=== PATIENT | male | born 1950 | race Caucasian/White ===

== ENCOUNTER 2019-11-12 14:22 | Outpatient (CLI) | payer OTHER | END 2019-11-12 14:23 | disposition home or self-care (01) | LOC: COV 14:22 | PROVIDERS: ATTEND Family Medicine | DX: Z11.59 Encounter for screening for other viral diseases (principal) ==

== ENCOUNTER 2020-09-25 11:25 | Day surgery (SDC) | payer OTHER ==
[2020-09-25] MEDS ORDERED: LACTATED RINGERS 1,000 ML IV ONE (12:00)
[2020-09-25] MEDS ORDERED: MIDAZOLAM 2 MG/2 ML VIAL ONE ×3 (13:40→14:16)
[2020-09-25] MEDS ORDERED: fentaNYL 250 MCG/5 ML VIAL ONE (13:41)
--- NOTE | 2020-09-25 13:47 | HISTORY & PHYSICAL EXAMINATION ---
Chief Complaint - Chief Complaint Chief Complaint: History of colon polyps History of Present Illness - History Obtained From Records Reviewed: yes History obtained from: pt Exam Limitations: none - History of Present Illness HPI Comment/Other: history of colon polyps. normal colonoscopy 5 years ago. History - Past Medical History Cardiovascular: reports: None Respiratory: reports: None Endocrine/Autoimmune: reports: None GI: reports: Pancreatitis : reports: None HEENT: reports: Dental implants Psych: reports: None Musculoskeletal: reports: None Derm: reports: None MRSA Hx?: No - Past Surgical History General: reports: Colonoscopy Ortho: reports: Other HEENT: reports: Tonsil/Adenoidectomy Meds/Allgy - Home Medications Home Medications: Ambulatory Orders Medication Instructions Recorded Confirmed No Known Home Medications 09/24/20 09/25/20 - Allergies Allergies/Adverse Reactions: Allergies Allergy/AdvReac Type Severity Reaction Status Date / Time No Known Drug Allergies Allergy Verified 09/25/20 11:46 Review of Systems - Other Findings Other Findings: 10 pt ros as above otherwise unremarkable Exam - Vital Signs Reviewed Vital Signs: Yes Vital Signs: Vital Signs x48h Temp Pulse Resp BP Pulse Ox 09/25/20 11:35 36.6 C 55 L 12 136/83 H 98 - Physical Exam General Appearance: positive: Alert Eyes Bilateral: positive: PERRL, EOMI ENT: positive: No signs of dehydration Neck: positive: No JVD Respiratory: positive: No respiratory distress, Breath sounds nml Cardiovascular: positive: Regular rate & rhythm Abdomen: positive: Non-tender, No distention Neurologic/Psychiatric: positive: Oriented x3 Conclusion/Plan - Problem List (1) History of adenomatous polyp of colon Conclusion/Plan: plan colonoscopy. parq held and consent obtained
[2020-09-25] MEDS ORDERED: LACTATED RINGERS 500 ML IV ONE (14:37)
[2020-09-25 14:55] VITALS: BP 125/68
== END 2020-09-25 11:26 | disposition home or self-care (01) ==
LOC: SDS 11:25
PROVIDERS: ATTEND Surgery
DX: Z12.11 Encounter for screening for malignant neoplasm of colon (principal); K57.30 Diverticulosis of large intestine without perforation or abscess without bleeding; Z86.010 Personal history of colon polyps
CPT/HCPCS: 45378; J3010; J7120

== ENCOUNTER 2020-10-15 10:02 | Outpatient (CLI) | payer OTHER ==
[2020-10-15 10:17] LABS: BASOPHILS % (AUTO) 0.8 %; EOSINOPHILS # (AUTO) 0.1 10^3/uL (0.0-0.7); EOSINOPHILS % (AUTO) 1.2 %; HCT - HEMATOCRIT 45.5 % (42.0-52.0); HGB - HEMOGLOBIN 15.6 g/dL (14.0-18.0); LYMPHOCYTES # (AUTO) 1.9 10^3/uL (1.5-3.5); LYMPHOCYTES % (AUTO) 38.1 %; MEAN CORPUSCULAR HEMOGLOBIN 30.6 pg (27.0-31.0); MEAN CORPUSCULAR HGB CONC 34.3 g/dL (32.0-36.0); MEAN CORPUSCULAR VOLUME 89.2 fL (80.0-94.0); MEAN PLATELET VOLUME 9.4 fL (7.4-11.4); MONOCYTES # (AUTO) 0.5 10^3/uL (0.0-1.0); MONOCYTES % (AUTO) 9.9 %; NEUTROPHILS # (AUTO) 2.4 10^3/uL (1.5-6.6); NEUTROPHILS % (AUTO) 49.6 %; PLT - PLATELET COUNT 172 10^3/uL (130-450); RED CELL DISTRIBUTION WIDTH 12.4 % (12.0-15.0); WHITE BLOOD COUNT 4.9 x10^3/uL (4.8-10.8)
[2020-10-15 10:39] LABS: ALBUMIN 4.7 g/dL (3.2-5.5); ALBUMIN/GLOBULIN RATIO 1.6 (1.0-2.2); ALKALINE PHOSPHATASE 30 IU/L (42-121); ALT ALANINE AMINOTRANSFERASE 24 IU/L (10-60); AST ASPARTATE AMINOTRANSFERASE 22 IU/L (10-42); BILIRUBIN,TOTAL 1.2 mg/dL (0.2-1.0); BUN - BLOOD UREA NITROGEN 14 mg/dL (6-20); CALCIUM 9.5 mg/dL (8.5-10.3); CARBON DIOXIDE - CO2 29 mmol/L (21-32); CHLORIDE 100 mmol/L (101-111); CHOL/HDL RATIO 6.7 (<5.0); CHOLESTEROL 235 mg/dL; CREATININE 0.7 mg/dL (0.6-1.2); GFR - MDRD 112 (>89); GLUCOSE 135 mg/dL (70-100); HDL CHOLESTEROL 35 mg/dL; LDL CHOLESTEROL,CALCULATED 170 mg/dL; LDL/HDL RATIO 4.9 (<3.6); SODIUM 138 mmol/L (135-145); TOTAL PROTEIN 7.7 g/dL (6.7-8.2); TRIGLYCERIDES 149 mg/dL; VLDL CHOLESTEROL 30 mg/dL
[2020-10-15 12:40] LABS: ESTIMATED AVERAGE GLUCOSE 134 mg/dL (70-100); HEMOGLOBIN A1c% 6.3 % (4.27-6.07)
== END 2020-10-15 10:03 | disposition home or self-care (01) ==
LOC: LAB 10:02
PROVIDERS: ATTEND Internal Medicine
DX: E78.5 Hyperlipidemia, unspecified (principal); Z79.899 Other long term (current) drug therapy; R73.9 Hyperglycemia, unspecified; Z12.5 Encounter for screening for malignant neoplasm of prostate
CPT/HCPCS: 36415; 80053; 80061; 83036; 83721; 84153; 85025

== ENCOUNTER 2023-05-20 17:36 | Inpatient (IN) | payer OTHER, MEDICARE ==
[2023-05-20 18:08] LABS: BASOPHILS % (AUTO) 0.4 %; EOSINOPHILS % (AUTO) 0.4 %; HCT - HEMATOCRIT 48.7 % (42.0-52.0); LYMPHOCYTES # (AUTO) 1.4 10^3/uL (1.5-3.5); LYMPHOCYTES % (AUTO) 14.2 %; MEAN CORPUSCULAR HEMOGLOBIN 29.3 pg (27.0-31.0); MEAN CORPUSCULAR HGB CONC 32.9 g/dL (32.0-36.0); MEAN CORPUSCULAR VOLUME 89.2 fL (80.0-94.0); MEAN PLATELET VOLUME 9.8 fL (7.4-11.4); MONOCYTES # (AUTO) 0.8 10^3/uL (0.0-1.0); MONOCYTES % (AUTO) 8.3 %; NEUTROPHILS # (AUTO) 7.3 10^3/uL (1.5-6.6); NEUTROPHILS % (AUTO) 76.4 %; PLT - PLATELET COUNT 220 10^3/uL (130-450); RED BLOOD COUNT 5.46 10^6/uL (4.70-6.10); RED CELL DISTRIBUTION WIDTH 11.9 % (12.0-15.0); WHITE BLOOD COUNT 9.5 x10^3/uL (4.8-10.8)
[2023-05-20 18:46] LABS: ALBUMIN 4.6 g/dL (3.2-5.5); ALBUMIN/GLOBULIN RATIO 1.4 (1.0-2.2); ALKALINE PHOSPHATASE 60 IU/L (42-121); ALT ALANINE AMINOTRANSFERASE 215 IU/L (10-60); AST ASPARTATE AMINOTRANSFERASE 213 IU/L (10-42); BILIRUBIN,TOTAL 3.4 mg/dL (0.2-1.0); BUN - BLOOD UREA NITROGEN 12 mg/dL (6-20); CARBON DIOXIDE - CO2 31 mmol/L (21-32); CHLORIDE 94 mmol/L (101-111); CREATININE 0.8 mg/dL (0.6-1.3); GFR - MDRD 96 (>89); GLUCOSE 477 mg/dL (74-104); POTASSIUM 3.9 mmol/L (3.5-4.5); SODIUM 136 mmol/L (135-145); TOTAL PROTEIN 7.9 g/dL (6.4-8.9)
[2023-05-20 19:05] LABS: LIPASE > 6000 U/L (11-82)
--- NOTE | 2023-05-20 19:10 | ED Physician Documentation ---
PD HPI ABD PAIN - Stated complaint Stated Complaint: ABD PX,VOMITING - Chief complaint Chief Complaint: Abd Pain - History obtained from History obtained from: Patient, Family - History of Present Illness Timing - onset: Yesterday Pain level max: 8 Pain level now: 8 Associated symptoms: No: Fever, Hematemesis, Diarrhea, Constipation, Melena, Hematochezia, Dysuria, Hematuria, Chest pain - Additional information Additional information: 72-year-old male presents to the emergency department with epigastric abdominal pain, started yesterday and is continued to worsen today. Has had nausea and vomiting today. No fevers. No chills. He states he has had pancreatitis once in the past, about 10 years ago, no cause found. He does not smoke or drink. He does not take any medications at home. Review of Systems Constitutional: denies: Fever, Chills Respiratory: denies: Dyspnea, Cough GI: reports: Nausea, Vomiting. denies: Diarrhea, Hematemesis, Bloody / black stool : denies: Dysuria, Frequency, Hesitancy Skin: denies: Rash Musculoskeletal: denies: Neck pain, Back pain Neurologic: denies: Headache PD PAST MEDICAL HISTORY - Past Medical History Past Medical History: Yes Cardiovascular: None Respiratory: None Endocrine/Autoimmune: None GI: Pancreatitis : None HEENT: Dental implants Psych: None Musculoskeletal: None Derm: None - Past Surgical History Past Surgical History: Yes General: Colonoscopy Ortho: Other HEENT: Tonsil/Adenoidectomy - Present Medications Home Medications: Ambulatory Orders Medication Instructions Recorded Confirmed No Known Home Medications 09/24/20 05/20/23 - Allergies Allergies/Adverse Reactions: Allergies Allergy/AdvReac Type Severity Reaction Status Date / Time No Known Drug Allergies Allergy Verified 05/20/23 17:54 - Social History Does the pt smoke?: No Smoking Status: Never smoker PD ED PE NORMAL - Vitals Vital signs reviewed: Yes - General General: Alert and oriented X 3, No acute distress - HEENT HEENT: PERRL, Moist mucous membranes - Neck Neck: Supple, no meningeal sign - Cardiac Cardiac: RRR, Strong equal pulses - Respiratory Respiratory: No respiratory distress, Clear bilaterally - Abdomen Abdomen: Soft, Non distended, Other (Tender to palpation epigastric without peritoneal signs. Otherwise benign abdominal exam) - Derm Derm: Warm and dry - Extremities Extremities: No edema - Neuro Neuro: Alert and oriented X 3 - Psych Psych: Normal mood, Normal affect Results - Vitals Vitals: Vital Signs - 24 hr 05/20/23 05/20/23 17:51 19:13 Temperature 36.5 C Heart Rate 60 81 Respiratory 16 20 Rate Blood Pressure 128/67 155/99 H O2 Saturation 99 96 Oxygen O2 Source Room air - Labs Labs: Laboratory Tests 05/20/23 05/20/23 05/20/23 18:04 18:04 19:16 WBC 9.5 RBC 5.46 Hgb 16.0 Hct 48.7 MCV 89.2 MCH 29.3 MCHC 32.9 RDW 11.9 L Plt Count 220 MPV 9.8 Neut # (Auto) 7.3 H Lymph # (Auto) 1.4 L [place] # (Auto) 0.8 Eos # (Auto) 0.0 Baso # (Auto) 0.0 Absolute Nucleated RBC 0.00 Nucleated RBC % 0.0 Sodium 136 Potassium 3.9 Chloride 94 L Carbon Dioxide 31 Anion Gap 11.0 BUN 12 Creatinine 0.8 Estimated GFR (MDRD) 96 Glucose 477 H Calcium 10.0 Total Bilirubin 3.4 H AST 213 H ALT 215 H Alkaline Phosphatase 60 Total Protein 7.9 Albumin 4.6 Globulin 3.3 Albumin/Globulin Ratio 1.4 Triglycerides 234 Lipase > 6000 H - Rads (name of study) Ct abd/pelvis Relevant Findings:: Final report received, See rad report abd US Relevant Findings:: Final report received, See rad report PD Medical Decision Making - ED course Complexity details: reviewed results, re-evaluated patient, considered differential, d/w patient, d/w family, d/w etl consultant ED course: 72-year-old male with pancreatitis, likely gallstone pancreatitis in origin. Does not drink. Not on any medications. Does have a history of diabetes and insulin resistance, does have a significantly elevated blood glucose here, 477. There is a question of potential early cholecystitis on the ultrasound, but no pericholecystic fluid and the patient is not tender over the gallbladder at this time. White count is normal as well, doubt acute cholecystitis. His common bile duct is normal as well. No evidence of choledocholithiasis. CT confirms pancreatitis, there is a question of a very small abscess, the patient does not have any tenderness over on the side of the abdomen. Afebrile. Normal white blood cell count. Unclear what the radiologist is seeing exactly on the CT scan, can be over read tomorrow with general surgery consulting with radiology. I did speak with Dr. Doyle, general surgery on-call, not concerned about choledocholithiasis and does not feel the patient needs an ERCP. Does not need emergent cholecystectomy. He states that he is happy to consult on the patient tomorrow. I did cover the patient with Zosyn for the potential very small abscess though I do not feel that this likely represents a true abscess based on the patient's clinical picture. Discussed the case with the nighttime hospitalist who accepts This document was made in part using voice recognition software. While efforts are made to proofread this document, sound alike and grammatical errors may occur. Departure - Departure Disposition: 66 [facility] DC/Xfer Clinical Impression: Hyperglycemia, Elevated LFTs Pancreatitis Qualifiers: Chronicity: acute Pancreatitis type: unspecified pancreatitis type Acute pancreatitis complication: unspecified Qualified Code(s): K85.90 - Acute pancreatitis without necrosis or infection, unspecified Condition: Stable Forms: PCP List
[2023-05-20] MEDS: HYDROmorphone 1 MG/ML CARPUJECT IVP STA (19:16)
[2023-05-20] MEDS: ONDANSETRON 4 MG/2 ML VIAL IVP STA (19:16)
[2023-05-20] MEDS ORDERED: iohexoL-300 100 ML VIAL ONE (19:27)
--- NOTE | 2023-05-20 20:46 | Ultrasound Report ---
PROCEDURE: Abdomen Limited INDICATIONS: elevated LFT, pancreatitis TECHNIQUE: Ultrasound of the abdominal right upper quadrant was obtained with image documentation. COMPARISONS: None. FINDINGS: Liver: Normal is size and echotexture. No evidence of focal mass lesion. No intra hepatic biliary ductal dilatation. Gallbladder: Cholelithiasis with gallbladder wall thickening. No pericholecystic fluid Common Bile Duct: 6 mm. Pancreas: Unremarkable as visualized. Right Kidney: Appropriate in size and echotexture. No evidence of hydronephrosis. No shadowing calc alfred. No solid or cystic mass lesion. IMPRESSION: Cholelithiasis and minimal gallbladder wall thickening without pericholecystic fluid or Clark's sign . Consider follow-up HIDA scan if acute cholecystitis is suspected. Reviewed by: Nestor Aranda MD on 05/20/2023 7:44 PM AKST Approved by: Nestor Aranda MD on 05/20/2023 7:44 PM AKST Station ID: [id number]
[2023-05-20] MEDS: iohexoL-300 100 ML VIAL IVP ONE (21:05)
--- NOTE | 2023-05-20 21:33 | CT Report ---
PROCEDURE: CT abdomen pelvis with contrast INDICATIONS: abd pain, pancreatitis TECHNIQUE: Helical axial CT of the abdomen and pelvis was obtained after intravenous contrast adminis tration and reformatted in multiple planes. Radiation dose reduction was achieved using automated exp osure control or adjustment of mA and/or kV according to patient size. COMPARISON: None FINDINGS: Lower thorax: The lung bases are clear. Heart size normal. No hiatal hernia. Liver: Hepatic parenchyma is diffusely decreased in attenuation without focal mass lesion. Biliary system: No calcified cholelithiasis or pericholecystic inflammation. No evidence of bile du ct dilatation. Pancreas: There is mild peripancreatic phlegmon consistent with pancreatitis. The pancreatic tail is bulbous, there is a small abscess adjacent to the pancreatic tail measuring 2.1 m in the splenic hil um associated with a thin tract are fistula to the gastric fundus, with a small focus of extraluminal air, probably an extension of the abscess. Spleen: Normal in size and density. Adrenals: Normal morphology and density. Reproductive system: Unremarkable as visualized. Urinary system: Normal renal size and attenuation. No renal calculi, hydronephrosis, or solid mass p resent. Urinary bladder unremarkable. Gastrointestinal system: The bowel appears unremarkable with no evidence of bowel obstruction or inf lammation. The stomach appears unremarkable. Moderate fecal debris throughout the colon. Several div erticuli noted Appendix: No findings to suggest acute appendicitis. Peritoneal spaces: No mesenteric or retroperitoneal adenopathy. Vasculature: The IVC, aorta and iliac vasculature are unremarkable. Incidental perigastric varices Abdominal wall: Abdominal wall is intact without evidence of ventral or inguinal hernias. Musculoskeletal: Normal bone mineralization. No acute fractures. IMPRESSION: Peripancreatic phlegmon consistent with pancreatitis. Small abscess adjacent to the pancreatic tail w ithin the splenic hilum with extension to the gastric fundus. This abscess is adjacent to the colonic splenic flexure as well, and differential would be diverticular abscess with reactive pancreatic inf lammation Reviewed by: Nestor Aranda MD on 05/20/2023 8:31 PM AKST Approved by: Nestor Aranda MD on 05/20/2023 8:31 PM AKST Station ID: [id number]
[2023-05-20] MEDS ORDERED: HYDROcod/ACETAM 5/325 MG TABLET PO PRN (22:19)
[2023-05-20] MEDS ORDERED: SODIUM CHLORIDE FLUSH 0.9% 10 ML SYRINGE IVP PRN (22:19)
[2023-05-20] MEDS ORDERED: ONDANSETRON 4 MG/2 ML VIAL IVP PRN (22:19)
--- NOTE | 2023-05-20 22:28 | HISTORY & PHYSICAL EXAMINATION ---
Chief Complaint - Chief Complaint Chief Complaint: Abdominal Pain History of Present Illness - Admitted From Admitted From:: Home - History Obtained From Records Reviewed: Yes History obtained from: Patient, EMR and ER reports Exam Limitations: None - History of Present Illness HPI Comment/Other: 72-year-old male presents to the emergency department with epigastric abdominal pain, started yesterday and is continued to worsen today. Has had nausea and vomiting today. No fevers. No chills. He states he has had Pancreatitis once in the past, about 10 years ago, no cause found. He does not smoke or drink. He does not take any medications at home. Patient blood sugar elevated he is on no medication, also his lft are abnormal although no bile duct dilation or stone see, stone may have passed, CT scan did show concerns for a small abscess, patient seen by surgery and they recommend admission. Patient is at bedside, patient has gone vegan has lost weight his weight over last 6 mos has declined more he has been vegan for 2 1/2 year. he works as an operations accountant, feels better after the pain meds. History - Past Medical History Cardiovascular: reports: None Respiratory: reports: None Endocrine/Autoimmune: reports: None GI: reports: Pancreatitis : reports: None HEENT: reports: Dental implants Psych: reports: None Musculoskeletal: reports: None Derm: reports: None MRSA Hx?: No - Past Surgical History General: reports: Colonoscopy Ortho: reports: Other HEENT: reports: Tonsil/Adenoidectomy Meds/Allgy - Home Medications Home Medications: Ambulatory Orders Medication Instructions Recorded Confirmed No Known Home Medications 09/24/20 05/20/23 - Allergies Allergies/Adverse Reactions: Allergies Allergy/AdvReac Type Severity Reaction Status Date / Time No Known Drug Allergies Allergy Verified 05/20/23 17:54 Review of Systems - Gastrointestinal Gastrointestinal: reports: Abdominal pain, Constipation Prior Level of Functionality: Independent with his ADL Exam - Vital Signs Vital Signs: Vital Signs x48h Temp Pulse Resp BP Pulse Ox 05/20/23 19:13 81 20 155/99 H 96 05/20/23 17:51 36.5 C 60 16 128/67 99 - Physical Exam General Appearance: positive: No acute distress, Alert Eyes Bilateral: positive: Normal inspection, PERRL, EOMI ENT: positive: ENT inspection nml Neck: positive: Thyroid nml, No JVD Respiratory: positive: No respiratory distress, Breath sounds nml Cardiovascular: positive: Regular rate & rhythm, No murmur Abdomen: positive: Tenderness Back: positive: Nml inspection Skin: positive: Color nml, No rash Extremities: positive: Full ROM, Nml appearance Neurologic/Psychiatric: positive: Oriented x3, CN's nml (2-12), Motor nml, Sensation nml Sepsis Event Note (H) - Evaluation Current Stage of Sepsis: Ruled out Conclusion/Plan - Problem List (1) Elevated LFTs Conclusion/Plan: Check Hepatitis panel Repeat LFT Could be gall stone pancreatitis with stone having passed (2) Hyperglycemia Conclusion/Plan: Check A1c gentle hydration Patient is on no meds for DM at home (3) Pancreatitis Conclusion/Plan: Etiology not clear, possible gallstone pancreatitis vs other causes He does have small abscess will put him on Zosyn may not need for long time NPO trial of clears in am if hungry, pain improved and lipase improving Surgery consulted by ER and have seen patient in ER Full code Qualifiers: Chronicity: acute Pancreatitis type: unspecified pancreatitis type Acute pancreatitis complication: unspecified Qualified Code(s): K85.90 - Acute pancreatitis without necrosis or infection, unspecified - Lab Results Fish Bones: 05/20/23 18:04 05/20/23 18:04 - Diagnostic Imaging Results Diagnostic Imaging Results: positive: Final report reviewed - EKG Results EKG Interpreted Independently: No
[2023-05-20] MEDS: PIPERACILLIN/TAZOBACTAM 3.375 GM in SODIUM CHLORIDE 0.9% MINIBAG 100 ML IV STA (22:42)
[2023-05-20] MEDS: SODIUM CHLORIDE 0.9% 1,000 ML IV SCH (23:12)
[2023-05-20] MEDS: SODIUM CHLORIDE 0.9% 1,000 ML IV STA (23:12)
[2023-05-20 23:21] LABS: BILIRUBIN,URINE SMALL (NEGATIVE); GLUCOSE, URINE (UA) >=1000 mg/dL (NEGATIVE); KETONES,URINE (UA) 40 mg/dL (NEGATIVE); LEUKOCYTE ESTERASE, URINE NEGATIVE (NEGATIVE); NITRITE,URINE NEGATIVE (NEGATIVE); OCCULT BLOOD,URINE NEGATIVE (NEGATIVE); PH,URINE 5.5 PH (5.0-7.5); PROTEIN,URINE NEGATIVE (NEGATIVE); UROBILINOGEN,URINE 0.2 (NORMAL) E.U./dL (NORMAL)
[2023-05-20 23:26] LABS: CLARITY,URINE CLEAR (CLEAR)
[2023-05-20] MEDS: SODIUM CHLORIDE FLUSH 0.9% 10 ML SYRINGE IVP SCH (23:39)
[2023-05-21] MEDS: ACETAMINOPHEN 325 MG TABLET PO PRN (01:32)
[2023-05-21] MEDS: HYDROmorphone 0.5 MG/0.5 ML SYRINGE IVP PRN (02:04)
[2023-05-21] MEDS: PIPERACILLIN/TAZOBACTAM 3.375 GM in SODIUM CHLORIDE 0.9% MINIBAG 100 ML IV SCH (05:37)
[2023-05-21 06:05] LABS: BASOPHILS % (AUTO) 0.4 %; EOSINOPHILS % (AUTO) 0.3 %; HCT - HEMATOCRIT 43.7 % (42.0-52.0); HGB - HEMOGLOBIN 14.7 g/dL (14.0-18.0); LYMPHOCYTES % (AUTO) 13.6 %; MEAN CORPUSCULAR HEMOGLOBIN 29.6 pg (27.0-31.0); MEAN CORPUSCULAR HGB CONC 33.6 g/dL (32.0-36.0); MEAN CORPUSCULAR VOLUME 88.1 fL (80.0-94.0); MEAN PLATELET VOLUME 10.7 fL (7.4-11.4); MONOCYTES # (AUTO) 0.7 10^3/uL (0.0-1.0); MONOCYTES % (AUTO) 9.3 %; NEUTROPHILS # (AUTO) 5.5 10^3/uL (1.5-6.6); NEUTROPHILS % (AUTO) 76.3 %; PLT - PLATELET COUNT 199 10^3/uL (130-450); RED BLOOD COUNT 4.96 10^6/uL (4.70-6.10); RED CELL DISTRIBUTION WIDTH 12.1 % (12.0-15.0); WHITE BLOOD COUNT 7.2 x10^3/uL (4.8-10.8)
[2023-05-21 07:43] LABS: ALBUMIN 3.9 g/dL (3.2-5.5); ALBUMIN/GLOBULIN RATIO 1.5 (1.0-2.2); BILIRUBIN,TOTAL 4.9 mg/dL (0.2-1.0); CALCIUM 9.1 mg/dL (8.5-10.3); CREATININE 0.7 mg/dL (0.6-1.3); TOTAL PROTEIN 6.5 g/dL (6.4-8.9)
[2023-05-21 08:01] LABS: CHOL/HDL RATIO 5.4 (<5.0); CHOLESTEROL 168 mg/dL; HDL CHOLESTEROL 31 mg/dL; LDL CHOLESTEROL,CALCULATED 110 mg/dL; LDL/HDL RATIO 3.5 (<3.6); TRIGLYCERIDES 136 mg/dL (48-352); VLDL CHOLESTEROL 27 mg/dL
--- NOTE | 2023-05-21 08:32 | CONSULTATION NOTE ---
Surgery Consult - Admit Date Hospital Admission Date: 05/20/23 - Consult Date Consult Date: 05/21/22 Requesting Provider: Negrito - Chief Complaint Chief Complaint: Abdominal pain - Home Meds/Allergies Home Medications: Patient History Medication Instructions Recorded Confirmed No Known Home Medications 09/24/20 05/20/23 Allergies/Adverse Reactions: Allergies Allergy/AdvReac Type Severity Reaction Status Date / Time No Known Drug Allergies Allergy Verified 05/20/23 17:54 - Vital Signs Vital Signs: Last Vital Signs Temp 98.1 F 05/21/23 05:05 Pulse 69 05/21/23 05:05 Resp 16 05/21/23 05:05 BP 126/74 05/21/23 05:05 Pulse Ox 95 05/21/23 05:05 O2 Flow Rate Intake & Output: Intake & Output 05/18/23 05/19/23 05/20/23 05/21/23 23:59 23:59 23:59 23:59 Intake Total 100 100 Balance 100 100 - Lab Results Result Diagrams: 05/21/23 04:57 05/21/23 04:57 - Consultation Note Consultation Note: General Surgery Consultation Note Assessment: 1) Gallstone pancreatitis - resolving clinically and chemically. 2) Hyperbilirubinemia - Need to monitor with daily labs since the T. Bili should decrease as the pancreatitis resolves. MRCP can be offered at this facility but not until tomorrow and should be performed if the hyperbilirubinemia persists. Transfer to a tertiary medical center for ERCP should be arranged if choledocholithiasis is confirmed. 3) Small (6 mm) splenic hilar abscess which appears to originate from the medial aspect of the descending colon just below the splenic flexure. This is too small to consider IR drainage and should resolve with IV antibiotics. Colonoscopy should be considered in 6-10 weeks. 4) Pre-diabetes Recommendation: 1) The patient may start a clear liquid diet and ambulate 2) Daily lipase and total bilirubin levels - MRCP if bilirubin continues to elevate 3) I discussed with the patient and his the pathophysiology of gallstone disease and specifically the complication of gallstone pancreatitis. Surgical intervention is recommended to eliminate the chance of recurrent pancreatitis and should be performed after his lipase returns to near normal as this reflects a decrease in the inflammatory process in the peripancreatic tissue which may improve operative identification of relevant anatomy. ERCP may be indicated if there is MRCP evidence of choledochilithiasis 4) Continue IV antibiotics for the splenic hilar abscess identified on CT <><><><><><><><><><> Reason for Consultation Pancreatitis Chief Complaint Abdominal pain LIBIA Toussaint is a 72 year old man who developed the sudden onset of mid-epigastric abdominal pain yesterday morning. It was constant, dull, and worsened throughout the day such that he brought himself to the ED for evaluation. The pain was associated with nausea and emesis and has been controlled with IV analgesia. He was admitted to the Medical Hospitalist Service and I was asked to see the patient this morning. Since admission, his symptoms which, at worst were a "10" are now a "1". He has no nausea. He tells me he had a similar episode of ideopathic pancreatitis 10 years ago. Past Medical History Denies cardiac disease, asthma, pneumonia, TIA, renal disease He has pre-diabetes but this has improved with weight loss related to a change to a vegan diet Past Surgical History None Family History Mother - Ovarian cancer Social History Denies smoking, alcohol use; [place] Current Home Medications None Allergies None ROS Pertinent positives Nausea, emesis, epigastric discomfort All other reviewed systems negative Physical Examination Vital Signs: T 98.2; P 65; BP 111/71; RR 18; BMI: 22 GENERAL APPEARANCE: Normal development, normal body habitus, grooming; Read a book when I entered the room. Spouse is present. PSYCHIATRIC: AAO; Comfortable EYES: Pupils equal, round and reactive to light, sclera anicteric EARS, NOSE, MOUTH, THROAT: Hearing normal, Oral mucous membranes moist and without lesions; NECK: No crepitus, lymphadenopathy, or thyromegaly LUNGS: Clear to auscultation without wheezing; No use of accessory muscles to breathe CARDIOVASCULAR: Heart-NSR without murmurs; Palpable carotid arteries - no bruits; ABD: Soft, mild fullness in the epigastric region with minimal tenderness to palpation; No dory-umbilical or flank ecchymosis LYMPHATIC: Neck, Axillae, Groin crossbar frame wirer palpable adenopathy EXTREMITIES: No clubbing, cyanosis, infections SKIN: Anicteric; No rashes, lesions, ulcerations Labs See "Labs" section Lipase at admission 6,000; This morning 1,510 T. Bili at admission 3.4; This morning 4.9 Antibiotics Zosyn (for CT identified dory-colic abscess) Imaging CT Abd/Pelvis Gallstone disease; 6 mm splenic hilar air pocket surrounded by inflammatory tissue. May be tracking from colon. US RUQ Gallstones, no gallbladder distension; CBD 5.98/CHD 4.50 All images were personally reviewed by me for this encounter. Benji Doyle MD, FACS General Surgery Service [phone]
--- NOTE | 2023-05-21 09:03 | PHARMACY PROGRESS NOTE ---
- Best Possible Medication History Admit Date and Time: 05/20/233 Processed by: Nursing As the person ultimately responsible for medication therapy, providers are able to order a medication from an existing home medication list in [facility] via the "Reconcile Routine" prior to Confirmation of that medication by integrated logistics support manager. Such practice is discouraged except when the physician, in their clinical judgment, deems that a medical need exists for a medication without regard to previous use.
[2023-05-21 09:35] LABS: ESTIMATED AVERAGE GLUCOSE 364 mg/dL (70-100); HEMOGLOBIN A1c% 14.3 % (4.27-6.07)
--- NOTE | 2023-05-21 20:05 | PROVIDER PROGRESS NOTE ---
Assessment/Plan - Problem List (1) Pancreatitis Qualifiers: Chronicity: acute Pancreatitis type: unspecified pancreatitis type Acute pancreatitis complication: unspecified Qualified Code(s): K85.90 - Acute pancreatitis without necrosis or infection, unspecified Assessment/Plan: Plan: Continue IV fluid with normal saline at 100 mL/hour. Continue to monitor lipase Trial of clear liquid diet. (2) Nondiabetic Hypglycemia Plan: Sliding scale insulin.Patient may have untreated diabetes (3) Transaminitis Plan: Repeat LFTs in the morning. (4) Abscess Plan: Continue Zosyn for empiric antibiotic coverage - Current Meds Current Meds: Current Medications Generic Name Dose Route Start Last Admin Trade Name Freq PRN Reason Stop Dose Admin Acetaminophen 650 mg 05/20/23 22:19 05/21/23 01:32 Acetaminophen 325 Mg Tablet PO 650 mg Q4HR PRN Administration Pain 1 to 4, or Fever Hydromorphone HCl 0.5 mg 05/20/23 22:19 05/21/23 15:46 Hydromorphone 0.5 Mg/0.5 Ml Syringe IVP 0.5 mg Q2H PRN Administration Pain 8 to 10 Sodium Chloride 1,000 mls @ 100 mls/hr 05/20/23 23:00 05/21/23 19:23 Normal Saline 0.9% IV 100 mls/hr .Q10H JOEL Administration Piperacillin Sod/Tazobactam 100 mls @ 200 mls/hr 05/21/23 06:00 05/21/23 13:40 Sod 3.375 gm/ Sodium Chloride IV Infused Q8HR JOEL Infusion Sodium Chloride 10 ml 05/21/23 01:00 05/21/23 15:47 Sodium Chloride Flush 0.9% 10 Ml Syringe IVP 10 ml 0100,0900,1700 JOEL Administration - Lab Result Fish Bone Diagrams: 05/21/23 04:57 05/21/23 04:57 - Additional Planning My Orders: My Active Orders 05/21/23 Lunch Clear Liquid Diet [DIET] Subjective - Subjective Patient Reports: Other (Alert. Overall improved. Abdominal pain has nearly resolved. No other complaints at this time.) Objective Vital Signs: Vital Signs - 24 hr 05/20/23 05/21/23 05/21/23 22:56 00:02 05:05 Temperature 36.6 C 37.1 C 36.7 C Heart Rate [ Brachial] Heart Rate [ 74 78 69 Monitoring electrodes] Respiratory 20 18 16 Rate Blood Pressure 150/82 H 124/78 126/74 [Left Brachial artery] O2 Saturation 97 95 95 05/21/23 05/21/23 08:15 15:37 Temperature 36.8 C 37.8 C Heart Rate [ 65 75 Brachial] Heart Rate [ Monitoring electrodes] Respiratory 18 16 Rate Blood Pressure 111/71 136/83 H [Left Brachial artery] O2 Saturation 96 96 Oxygen O2 Source Room air I&O (Last 24 Hrs): Intake and Output Totals x24h 05/19/23 05/20/23 05/21/23 23:59 23:59 23:59 Intake Total 100 3640.000 Balance 100 3640.000 General: Alert, Oriented x3, No acute distress HEENT: PERRLA Neck: Supple, No JVD, No thyromegaly Neuro: Alert, Non Focal Cardiovascular: Regular rate, Normal S1, Normal S2, No murmurs Respiratory: Chest non-tender, No respiratory distress, Breath sounds nml Abdomen: Normal bowel sounds, Soft, No tenderness, No hepatospenomegaly Extremities: No cyanosis, No edema Skin: No rashes - Results Results: Laboratory Results WBC 7.2 x10^3/uL (4.8-10.8) 05/21/23 04:57 RBC 4.96 10^6/uL (4.70-6.10) 05/21/23 04:57 Hgb 14.7 g/dL (14.0-18.0) 05/21/23 04:57 Hct 43.7 % (42.0-52.0) 05/21/23 04:57 MCV 88.1 fL (80.0-94.0) 05/21/23 04:57 MCH 29.6 pg (27.0-31.0) 05/21/23 04:57 MCHC 33.6 g/dL (32.0-36.0) 05/21/23 04:57 RDW 12.1 % (12.0-15.0) 05/21/23 04:57 Plt Count 199 10^3/uL (130-450) 05/21/23 04:57 MPV 10.7 fL (7.4-11.4) 05/21/23 04:57 Neut # (Auto) 5.5 10^3/uL (1.5-6.6) 05/21/23 04:57 Lymph # (Auto) 1.0 10^3/uL (1.5-3.5) L 05/21/23 04:57 [place] # (Auto) 0.7 10^3/uL (0.0-1.0) 05/21/23 04:57 Eos # (Auto) 0.0 10^3/uL (0.0-0.7) 05/21/23 04:57 Baso # (Auto) 0.0 10^3/uL (0.0-0.1) 05/21/23 04:57 Absolute Nucleated RBC 0.00 x10^3/uL 05/21/23 04:57 Nucleated RBC % 0.0 /100WBC 05/21/23 04:57 Sodium 135 mmol/L (135-145) 05/21/23 04:57 Potassium 4.0 mmol/L (3.5-4.5) 05/21/23 04:57 Chloride 99 mmol/L (101-111) L 05/21/23 04:57 Carbon Dioxide 27 mmol/L (21-32) 05/21/23 04:57 Anion Gap 9.0 (6-13) 05/21/23 04:57 BUN 11 mg/dL (6-20) 05/21/23 04:57 Creatinine 0.7 mg/dL (0.6-1.3) 05/21/23 04:57 Estimated GFR (MDRD) 111 (>89) 05/21/23 04:57 Glucose 319 mg/dL (74-104) H 05/21/23 04:57 Estimat Average Glucose 364 mg/dL (70-100) H 05/21/23 04:57 Hemoglobin A1c % 14.3 % (4.27-6.07) H 05/21/23 04:57 Calcium 9.1 mg/dL (8.5-10.3) 05/21/23 04:57 Total Bilirubin 4.9 mg/dL (0.2-1.0) H 05/21/23 04:57 AST 209 IU/L (10-42) H 05/21/23 04:57 ALT 226 IU/L (10-60) H 05/21/23 04:57 Alkaline Phosphatase 48 IU/L (42-121) 05/21/23 04:57 Total Protein 6.5 g/dL (6.4-8.9) 05/21/23 04:57 Albumin 3.9 g/dL (3.2-5.5) 05/21/23 04:57 Globulin 2.6 g/dL (2.1-4.2) 05/21/23 04:57 Albumin/Globulin Ratio 1.5 (1.0-2.2) 05/21/23 04:57 Triglycerides 136 mg/dL (48-352) 05/21/23 04:57 Cholesterol 168 mg/dL (-200) 05/21/23 04:57 LDL Cholesterol, Calc 110 mg/dL (-129) 05/21/23 04:57 VLDL Cholesterol 27 mg/dL 05/21/23 04:57 HDL Cholesterol 31 mg/dL (60-) L 05/21/23 04:57 LDL/HDL Ratio 3.5 (<3.6) 05/21/23 04:57 Cholesterol/HDL Ratio 5.4 (<5.0) 05/21/23 04:57 Lipase 1510 U/L (11-82) H 05/21/23 04:57 Urine Color DARK YELLOW 05/20/23 22:58 Urine Clarity CLEAR (CLEAR) 05/20/23 22:58 Urine pH 5.5 PH (5.0-7.5) 05/20/23 22:58 Ur Specific [place] 1.015 (1.002-1.030) 05/20/23 22:58 Urine Protein NEGATIVE mg/dL (NEGATIVE) 05/20/23 22:58 Urine Glucose (UA) >=1000 mg/dL (NEGATIVE) H 05/20/23 22:58 Urine Ketones 40 mg/dL (NEGATIVE) H 05/20/23 22:58 Urine Occult Blood NEGATIVE (NEGATIVE) 05/20/23 22:58 Urine Nitrite NEGATIVE (NEGATIVE) 05/20/23 22:58 Urine Bilirubin SMALL (NEGATIVE) H 05/20/23 22:58 Urine Urobilinogen 0.2 (NORMAL) E.U./dL (NORMAL) 05/20/23 22:58 Ur Leukocyte Esterase NEGATIVE (NEGATIVE) 05/20/23 22:58 Ur Microscopic Review NOT INDICATED 05/20/23 22:58 Urine Culture Comments NOT INDICATED 05/20/23 22:58 Sepsis Event Note (H) - Evaluation Current Stage of Sepsis: Ruled out Current Medications - Current Medications Current Medications: Active Medications Acetaminophen (Acetaminophen 325 Mg Tablet) 650 mg PO Q4HR PRN PRN Reason: Pain 1 to 4, or Fever Last Admin: 05/21/23 01:32 Dose: 650 mg Hydrocodone Bitart/Acetaminophen (Hydrocod/Acetam 5/325 Mg Tablet) 1 tab PO Q4HR PRN PRN Reason: Pain 5 to 7 Hydromorphone HCl (Hydromorphone 0.5 Mg/0.5 Ml Syringe) 0.5 mg IVP Q2H PRN PRN Reason: Pain 8 to 10 Last Admin: 05/21/23 15:46 Dose: 0.5 mg Sodium Chloride (Normal Saline 0.9%) 1,000 mls @ 100 mls/hr IV .Q10H [facility] Last Admin: 05/21/23 19:23 Dose: 100 mls/hr Piperacillin Sod/Tazobactam (Sod 3.375 gm/ Sodium Chloride) 100 mls @ 200 mls/hr IV Q8HR [facility] Last Infusion: 05/21/23 13:40 Dose: Infused Ondansetron HCl (Ondansetron 4 Mg/2 Ml Vial) 4 mg IVP Q6HR PRN PRN Reason: Nausea / Vomiting Sodium Chloride (Sodium Chloride Flush 0.9% 10 Ml Syringe) 10 ml IVP PRN PRN PRN Reason: NEEDED PER PROVIDER ORDERS Sodium Chloride (Sodium Chloride Flush 0.9% 10 Ml Syringe) 10 ml IVP 0100,0900,1700 [facility] Last Admin: 05/21/23 15:47 Dose: 10 ml No Known Home Medications 09/24/20
[2023-05-21] MEDS: INSULIN LISPRO 300 UNIT/3 ML PEN SUBQ SCH (20:55)
[2023-05-22 05:44] LABS: BASOPHILS % (AUTO) 0.3 %; EOSINOPHILS % (AUTO) 0.7 %; HGB - HEMOGLOBIN 13.4 g/dL (14.0-18.0); LYMPHOCYTES % (AUTO) 17.7 %; MEAN CORPUSCULAR HEMOGLOBIN 29.5 pg (27.0-31.0); MEAN CORPUSCULAR HGB CONC 32.7 g/dL (32.0-36.0); MEAN CORPUSCULAR VOLUME 90.3 fL (80.0-94.0); MEAN PLATELET VOLUME 10.2 fL (7.4-11.4); MONOCYTES # (AUTO) 0.5 10^3/uL (0.0-1.0); MONOCYTES % (AUTO) 8.5 %; NEUTROPHILS # (AUTO) 4.3 10^3/uL (1.5-6.6); NEUTROPHILS % (AUTO) 72.5 %; PLT - PLATELET COUNT 175 10^3/uL (130-450); RED BLOOD COUNT 4.54 10^6/uL (4.70-6.10); RED CELL DISTRIBUTION WIDTH 12.1 % (12.0-15.0); WHITE BLOOD COUNT 5.9 x10^3/uL (4.8-10.8)
[2023-05-22 06:13] LABS: ALBUMIN 3.4 g/dL (3.2-5.5); ALBUMIN/GLOBULIN RATIO 1.4 (1.0-2.2); BILIRUBIN,TOTAL 6.4 mg/dL (0.2-1.0); CALCIUM 8.8 mg/dL (8.5-10.3); CREATININE 0.7 mg/dL (0.6-1.3); MAGNESIUM 1.7 mg/dL (1.7-2.3); PHOSPHORUS 2.3 mg/dL (2.5-5.0); POTASSIUM 3.6 mmol/L (3.5-4.5); TOTAL PROTEIN 5.8 g/dL (6.4-8.9)
--- NOTE | 2023-05-22 08:06 | PROVIDER PROGRESS NOTE ---
Assessment/Plan - Problem List (1) Pancreatitis Qualifiers: Chronicity: acute Pancreatitis type: unspecified pancreatitis type Acute pancreatitis complication: unspecified Qualified Code(s): K85.90 - Acute pancreatitis without necrosis or infection, unspecified Assessment/Plan: Continue IV fluid with normal saline at 100 mL/hour. Continue to monitor lipase Advance diet as tolerated. An MRCP was performed today which showed no evidence of choledocho lithiasis. Patient n.p.o. after midnight for possible surgery tomorrow. If bilirubin increases, patient most likely will have to be transferred to another facility to undergo an ERCP Results of MRCP and plan of care discussed with Dr. Mendez. (2) Diabetes Mellitus, Type 2 Plan: Hemoglobin A1c is 14 hemoglobin A1c is 14. Patient most likely has untreated diabetes mellitus type 2. Continue Sliding scale insulin. He will require diabetic teaching prior to discharge. (3) Transaminitis Plan: Repeat LFTs in the morning. (4) Abscess Plan: Continue Zosyn for empiric antibiotic coverage.There appears to be a small abscess adjacent to the pancreatic tail within the splenic hilum. The etiology of the abscess is not clear but may be related to a colonic diverticulum. - Current Meds Current Meds: Current Medications Generic Name Dose Route Start Last Admin Trade Name Freq PRN Reason Stop Dose Admin Acetaminophen 650 mg 05/20/23 22:19 05/22/23 01:17 Acetaminophen 325 Mg Tablet PO 650 mg Q4HR PRN Administration Pain 1 to 4, or Fever Hydromorphone HCl 0.5 mg 05/20/23 22:19 05/22/23 01:10 Hydromorphone 0.5 Mg/0.5 Ml Syringe IVP 0.5 mg Q2H PRN Administration Pain 8 to 10 Sodium Chloride 1,000 mls @ 100 mls/hr 05/20/23 23:00 05/22/23 05:41 Normal Saline 0.9% IV 100 mls/hr .Q10H JOEL Administration Piperacillin Sod/Tazobactam 100 mls @ 200 mls/hr 05/21/23 06:00 05/22/23 07:26 Sod 3.375 gm/ Sodium Chloride IV Infused Q8HR JOEL Infusion Insulin Human Lispro 1 - 9 unit 05/21/23 21:00 05/21/23 20:55 Insulin Lispro 300 Unit/3 Ml Pen SUBQ Not Given 0800,1200,1700,2100 [facility] Protocol Sodium Chloride 10 ml 05/21/23 01:00 05/22/23 01:20 Sodium Chloride Flush 0.9% 10 Ml Syringe IVP Not Given 0100,0900,1700 [facility] - Lab Result Fish Bone Diagrams: 05/22/23 04:51 05/22/23 04:51 - Additional Planning My Orders: My Active Orders 05/21/23 20:06 Blood Glucose Checks - Eating [RC] 0800,1200,1700,2100 Initiate Hypoglycemia Protocol [RC] .protocol 05/21/23 21:00 Insulin Lispro [Humalog Kwikpen U-100] 1 - 9 unit SUBQ 0800,1200,1700,2100 05/22/23 07:57 NPO [DIET] Subjective - Subjective Patient Reports: Other (Alert. Denies abdominal pain denies chest pain and shortness of breath. No other complaints at this time.) Objective Vital Signs: Vital Signs - 24 hr 05/21/23 05/21/23 05/22/23 08:15 15:37 00:00 Temperature 36.8 C 37.8 C 38.1 C H Heart Rate [ 65 75 73 Brachial] Respiratory 18 16 16 Rate Blood Pressure 111/71 136/83 H 137/80 H [Left Brachial artery] O2 Saturation 96 96 95 05/22/23 05/22/23 05/22/23 02:17 02:34 07:45 Temperature 36.7 C 36.7 C 36.9 C Heart Rate [ 62 Brachial] Respiratory 16 Rate Blood Pressure 119/71 [Left Brachial artery] O2 Saturation 98 Oxygen O2 Source Room air I&O (Last 24 Hrs): Intake and Output Totals x24h 05/20/23 05/21/23 05/22/23 23:59 23:59 23:59 Intake Total 100 3995.000 813.333 Balance 100 3995.000 813.333 General: Alert, Oriented x3, No acute distress HEENT: Atraumatic, PERRLA Neck: Supple, No thyromegaly Neuro: Alert, Non Focal Cardiovascular: Regular rate, Normal S1, Normal S2, No murmurs Respiratory: Chest non-tender, No respiratory distress, Breath sounds nml Abdomen: Normal bowel sounds, Soft, No tenderness Rectal: Non-Tender Extremities: No cyanosis, No edema Skin: No rashes - Results Results: Laboratory Results WBC 5.9 x10^3/uL (4.8-10.8) 05/22/23 04:51 RBC 4.54 10^6/uL (4.70-6.10) L 05/22/23 04:51 Hgb 13.4 g/dL (14.0-18.0) L 05/22/23 04:51 Hct 41.0 % (42.0-52.0) L 05/22/23 04:51 MCV 90.3 fL (80.0-94.0) 05/22/23 04:51 MCH 29.5 pg (27.0-31.0) 05/22/23 04:51 MCHC 32.7 g/dL (32.0-36.0) 05/22/23 04:51 RDW 12.1 % (12.0-15.0) 05/22/23 04:51 Plt Count 175 10^3/uL (130-450) 05/22/23 04:51 MPV 10.2 fL (7.4-11.4) 05/22/23 04:51 Neut # (Auto) 4.3 10^3/uL (1.5-6.6) 05/22/23 04:51 Lymph # (Auto) 1.0 10^3/uL (1.5-3.5) L 05/22/23 04:51 [place] # (Auto) 0.5 10^3/uL (0.0-1.0) 05/22/23 04:51 Eos # (Auto) 0.0 10^3/uL (0.0-0.7) 05/22/23 04:51 Baso # (Auto) 0.0 10^3/uL (0.0-0.1) 05/22/23 04:51 Absolute Nucleated RBC 0.00 x10^3/uL 05/22/23 04:51 Nucleated RBC % 0.0 /100WBC 05/22/23 04:51 Sodium 136 mmol/L (135-145) 05/22/23 04:51 Potassium 3.6 mmol/L (3.5-4.5) 05/22/23 04:51 Chloride 103 mmol/L (101-111) 05/22/23 04:51 Carbon Dioxide 26 mmol/L (21-32) 05/22/23 04:51 Anion Gap 7.0 (6-13) 05/22/23 04:51 BUN 9 mg/dL (6-20) 05/22/23 04:51 Creatinine 0.7 mg/dL (0.6-1.3) 05/22/23 04:51 Estimated GFR (MDRD) 111 (>89) 05/22/23 04:51 Glucose 227 mg/dL (74-104) H 05/22/23 04:51 POC Whole Bld Glucose 208 mg/dL (70 - 100) H 05/22/23 07:36 Estimat Average Glucose 364 mg/dL (70-100) H 05/21/23 04:57 Hemoglobin A1c % 14.3 % (4.27-6.07) H 05/21/23 04:57 Calcium 8.8 mg/dL (8.5-10.3) 05/22/23 04:51 Phosphorus 2.3 mg/dL (2.5-5.0) L 05/22/23 04:51 Magnesium 1.7 mg/dL (1.7-2.3) 05/22/23 04:51 Total Bilirubin 6.4 mg/dL (0.2-1.0) H 05/22/23 04:51 AST 78 IU/L (10-42) H 05/22/23 04:51 ALT 148 IU/L (10-60) H 05/22/23 04:51 Alkaline Phosphatase 47 IU/L (42-121) 05/22/23 04:51 Total Protein 5.8 g/dL (6.4-8.9) L 05/22/23 04:51 Albumin 3.4 g/dL (3.2-5.5) 05/22/23 04:51 Globulin 2.4 g/dL (2.1-4.2) 05/22/23 04:51 Albumin/Globulin Ratio 1.4 (1.0-2.2) 05/22/23 04:51 Triglycerides 136 mg/dL (48-352) 05/21/23 04:57 Cholesterol 168 mg/dL (-200) 05/21/23 04:57 LDL Cholesterol, Calc 110 mg/dL (-129) 05/21/23 04:57 VLDL Cholesterol 27 mg/dL 02/04/24 04:57 HDL Cholesterol 31 mg/dL (60-) L 05/21/23 04:57 LDL/HDL Ratio 3.5 (<3.6) 05/21/23 04:57 Cholesterol/HDL Ratio 5.4 (<5.0) 05/21/23 04:57 Lipase 127 U/L (11-82) H 05/22/23 04:51 Urine Color DARK YELLOW 05/20/23 22:58 Urine Clarity CLEAR (CLEAR) 05/20/23 22:58 Urine pH 5.5 PH (5.0-7.5) 05/20/23 22:58 Ur Specific [place] 1.015 (1.002-1.030) 05/20/23 22:58 Urine Protein NEGATIVE mg/dL (NEGATIVE) 05/20/23 22:58 Urine Glucose (UA) >=1000 mg/dL (NEGATIVE) H 05/20/23 22:58 Urine Ketones 40 mg/dL (NEGATIVE) H 05/20/23 22:58 Urine Occult Blood NEGATIVE (NEGATIVE) 05/20/23 22:58 Urine Nitrite NEGATIVE (NEGATIVE) 05/20/23 22:58 Urine Bilirubin SMALL (NEGATIVE) H 05/20/23 22:58 Urine Urobilinogen 0.2 (NORMAL) E.U./dL (NORMAL) 05/20/23 22:58 Ur Leukocyte Esterase NEGATIVE (NEGATIVE) 05/20/23 22:58 Ur Microscopic Review NOT INDICATED 05/20/23 22:58 Urine Culture Comments NOT INDICATED 05/20/23 22:58 Sepsis Event Note (H) - Evaluation Current Stage of Sepsis: Ruled out Current Medications - Current Medications Current Medications: Active Medications Acetaminophen (Acetaminophen 325 Mg Tablet) 650 mg PO Q4HR PRN PRN Reason: Pain 1 to 4, or Fever Last Admin: 05/22/23 01:17 Dose: 650 mg Hydrocodone Bitart/Acetaminophen (Hydrocod/Acetam 5/325 Mg Tablet) 1 tab PO Q4H R PRN PRN Reason: Pain 5 to 7 Hydromorphone HCl (Hydromorphone 0.5 Mg/0.5 Ml Syringe) 0.5 mg IVP Q2H PRN PRN Reason: Pain 8 to 10 Last Admin: 05/22/23 01:10 Dose: 0.5 mg Sodium Chloride (Normal Saline 0.9%) 1,000 mls @ 100 mls/hr IV .Q10H [facility] Last Admin: 05/22/23 05:41 Dose: 100 mls/hr Piperacillin Sod/Tazobactam (Sod 3.375 gm/ Sodium Chloride) 100 mls @ 200 mls/hr IV Q8HR [facility] Last Infusion: 05/22/23 07:26 Dose: Infused Insulin Human Lispro (Insulin Lispro 300 Unit/3 Ml Pen) 1 - 9 unit SUBQ 0800,1200,1700,2100 [facility]; Protocol Last Admin: 05/22/23 08:04 Dose: 3 unit Ondansetron HCl (Ondansetron 4 Mg/2 Ml Vial) 4 mg IVP Q6HR PRN PRN Reason: Nausea / Vomiting Sodium Chloride (Sodium Chloride Flush 0.9% 10 Ml Syringe) 10 ml IVP PRN PRN PRN Reason: NEEDED PER PROVIDER ORDERS Sodium Chloride (Sodium Chloride Flush 0.9% 10 Ml Syringe) 10 ml IVP 0100,0900,1700 [facility] Last Admin: 05/22/23 08:04 Dose: Not Given No Known Home Medications 09/24/20
--- NOTE | 2023-05-22 10:16 | PROVIDER PROGRESS NOTE ---
Subjective - General Admit Date: 05/21/23 - Other Other Information/Narrative: Patient denies significant pain at this time. No n/v, tolerating clears. Denies fevers or chills. Objective - Patient Data Reviewed Vital Signs: Yes Vital Signs: Vital Signs x48h Temp Pulse Resp BP Pulse Ox 05/22/23 07:45 36.9 C 62 16 119/71 98 05/22/23 02:34 36.7 C 05/22/23 02:17 36.7 C Weight: Weight 05/20/23 05/21/23 05/22/23 23:59 23:59 23:59 Weight (kg) 75 kg 75 kg Intake & Output: Intake and Output Totals x24h 05/20/23 05/21/23 05/22/23 23:59 23:59 23:59 Intake Total 100 3995.000 813.333 Balance 100 3995.000 813.333 - Lab Results Lab Results: 05/22/23 04:51 05/22/23 04:51 Other Lab Results: Lab Results x24hrs 05/22/23 05/22/23 05/22/23 Range/Units 07:36 04:51 04:51 WBC 5.9 (4.8-10.8) x10^3/uL RBC 4.54 L (4.70-6.10) 10^6/uL Hgb 13.4 L (14.0-18.0) g/dL Hct 41.0 L (42.0-52.0) % MCV 90.3 (80.0-94.0) fL MCH 29.5 (27.0-31.0) pg MCHC 32.7 (32.0-36.0) g/dL RDW 12.1 (12.0-15.0) % Plt Count 175 (130-450) 10^3/uL MPV 10.2 (7.4-11.4) fL Neut # (Auto) 4.3 (1.5-6.6) 10^3/uL Lymph # (Auto) 1.0 L (1.5-3.5) 10^3/uL [place] # (Auto) 0.5 (0.0-1.0) 10^3/uL Eos # (Auto) 0.0 (0.0-0.7) 10^3/uL Baso # (Auto) 0.0 (0.0-0.1) 10^3/uL Absolute Nucleated RBC 0.00 x10^3/uL Nucleated RBC % 0.0 /100WBC Sodium 136 (135-145) mmol/L Potassium 3.6 (3.5-4.5) mmol/L Chloride 103 (101-111) mmol/L Carbon Dioxide 26 (21-32) mmol/L Anion Gap 7.0 (6-13) BUN 9 (6-20) mg/dL Creatinine 0.7 (0.6-1.3) mg/dL Estimated GFR (MDRD) 111 (>89) Glucose 227 H (74-104) mg/dL POC Whole Bld Glucose 208 H (70 - 100) mg/dL Estimat Average Glucose (70-100) mg/dL Hemoglobin A1c % (4.27-6.07) % Calcium 8.8 (8.5-10.3) mg/dL Phosphorus 2.3 L (2.5-5.0) mg/dL Magnesium 1.7 (1.7-2.3) mg/dL Total Bilirubin 6.4 H (0.2-1.0) mg/dL AST 78 H (10-42) IU/L ALT 148 H (10-60) IU/L Alkaline Phosphatase 47 (42-121) IU/L Total Protein 5.8 L (6.4-8.9) g/dL Albumin 3.4 (3.2-5.5) g/dL Globulin 2.4 (2.1-4.2) g/dL Albumin/Globulin Ratio 1.4 (1.0-2.2) Lipase 127 H (11-82) U/L 05/21/23 05/21/23 Range/Units 20:30 04:57 WBC (4.8-10.8) x10^3/uL RBC (4.70-6.10) 10^6/uL Hgb (14.0-18.0) g/dL Hct (42.0-52.0) % MCV (80.0-94.0) fL MCH (27.0-31.0) pg MCHC (32.0-36.0) g/dL RDW (12.0-15.0) % Plt Count (130-450) 10^3/uL MPV (7.4-11.4) fL Neut # (Auto) (1.5-6.6) 10^3/uL Lymph # (Auto) (1.5-3.5) 10^3/uL [place] # (Auto) (0.0-1.0) 10^3/uL Eos # (Auto) (0.0-0.7) 10^3/uL Baso # (Auto) (0.0-0.1) 10^3/uL Absolute Nucleated RBC x10^3/uL Nucleated RBC % /100WBC Sodium (135-145) mmol/L Potassium (3.5-4.5) mmol/L Chloride (101-111) mmol/L Carbon Dioxide (21-32) mmol/L Anion Gap (6-13) BUN (6-20) mg/dL Creatinine (0.6-1.3) mg/dL Estimated GFR (MDRD) (>89) Glucose (74-104) mg/dL POC Whole Bld Glucose 320 H (70 - 100) mg/dL Estimat Average Glucose 364 H (70-100) mg/dL Hemoglobin A1c % 14.3 H (4.27-6.07) % Calcium (8.5-10.3) mg/dL Phosphorus (2.5-5.0) mg/dL Magnesium (1.7-2.3) mg/dL Total Bilirubin (0.2-1.0) mg/dL AST (10-42) IU/L ALT (10-60) IU/L Alkaline Phosphatase (42-121) IU/L Total Protein (6.4-8.9) g/dL Albumin (3.2-5.5) g/dL Globulin (2.1-4.2) g/dL Albumin/Globulin Ratio (1.0-2.2) Lipase (11-82) U/L - Imaging Results Imaging Results Comments: MRCP pending - Current Medications Current Medications: Current Medications Generic Name Dose Route Start Last Admin Trade Name Freq PRN Reason Stop Dose Admin Acetaminophen 650 mg 05/20/23 22:19 05/22/23 01:17 Acetaminophen 325 Mg Tablet PO 650 mg Q4HR PRN Administration Pain 1 to 4, or Fever Hydromorphone HCl 0.5 mg 05/20/23 22:19 05/22/23 01:10 Hydromorphone 0.5 Mg/0.5 Ml Syringe IVP 0.5 mg Q2H PRN Administration Pain 8 to 10 Sodium Chloride 1,000 mls @ 100 mls/hr 05/20/23 23:00 05/22/23 05:41 Normal Saline 0.9% IV 100 mls/hr .Q10H [facility] Administration Piperacillin Sod/Tazobactam 100 mls @ 200 mls/hr 05/21/23 06:00 05/22/23 07:26 Sod 3.375 gm/ Sodium Chloride IV Infused Q8HR [facility] Infusion Insulin Human Lispro 1 - 9 unit 05/21/23 21:00 05/22/23 08:04 Insulin Lispro 300 Unit/3 Ml Pen SUBQ 3 unit 0800,1200,1700,2100 [facility] Administration Protocol Sodium Chloride 10 ml 05/21/23 01:00 05/22/23 08:04 Sodium Chloride Flush 0.9% 10 Ml Syringe IVP Not Given 0100,0900,1700 [facility] - Physical Exam General Appearance: positive: No acute distress, Alert Eyes Bilateral: positive: Other (minimal icterus) ENT: positive: No signs of dehydration Neck: positive: Nml inspection Respiratory: positive: No respiratory distress Cardiovascular: positive: Regular rate & rhythm Abdomen: positive: Tenderness (minimal epigastric to deep palpation). negative: Guarding, Rebound Skin: positive: Other (jaundiced appearance). negative: Color nml Extremities: positive: Full ROM, Nml appearance Neurologic/Psychiatric: positive: Oriented x3 Impression/Plan - Problem List Problem List: 72 y/o M with: 1) Gallstone pancreatitis - resolving clinically and chemically. Pain improving. Patient will need cholecystectomy to prevent recurrent episodes. Choledocholithiasis needs to be addressed before lap nany. 2) Hyperbilirubinemia, likely choledocholithiasis - worsening. Patient needs MRCP, and likely ERCP. MRCP could not be done over the weekend but should be done today. If stones noted, patient will need to be transferred to facility where ERCP can be preformed. 3) Small (6 mm) splenic hilar abscess on CT (appears to originate from the medial aspect of the proximal descending colon). This is too small to consider IR drainage and should resolve with IV antibiotics. Colonoscopy should be considered in 6-10 weeks. Consider MRI evaluation of this area as well as pt is already getting MRI for MRCP. 4) Pre-diabetes- continue to follow blood glucose levels 1555 Update: MRCP negative for stone Repeat bilirubin this afternoon is in an obstructive pattern and trending down Patient remains comfortable and hungry. Ok to adat to low fat diet tonight, and make NPO at midnight for possible lap nany tomorrow AM. Repeat lab in AM, if bilirubin <4, lipase at/near normal, plan for lap nany with IOC tomorrow. I discussed this plan with the patient, his and sister, and the primary team.
[2023-05-22] MEDS ORDERED: GADOTERATE MEGLUMINE 10 MMOL/20 ML VIAL ONE (10:31)
[2023-05-22] MEDS: INSULIN REGULAR HUMAN 300 UNIT/3 ML VIAL SUBQ SCH (11:52)
--- NOTE | 2023-05-22 12:10 | MRI Report ---
PROCEDURE: MRCP W/WO INDICATIONS: Elevated bilirubin in pt w/ gallstone pancreatitis CONTRAST: clariascan 15.4ml TECHNIQUE: Coronal ultra fast SE through the abdomen, axial 2-D spoiled GE in- and [id number], and breath-hold T2 FSE with fat saturation through the biliary system and pancreas. Oblique coronal and axial thin- slice ultra fast SE, radial thick-slab ultra fast SE centered on the extrahepatic bile ducts. COMPARISON: 05/20/2023 CT and ultrasound. FINDINGS: Image quality: Excellent. Gallbladder: Gallstones with gallbladder wall thickening. Biliary tree: No intrahepatic or extrahepatic dilation. No filling defects within the common bile tawanda t. Pancreas: No pancreatic ductal dilation. The pancreas is edematous, but demonstrates homogeneous enha ncement. Lung bases and heart: Unremarkable. Liver: No solid mass. Spleen: No splenomegaly. Adrenals: No adrenal nodule. Kidneys and ureters: No hydronephrosis. No renal cystic lesion which requires follow up. No solid mas s. Bowel and peritoneum: No bowel distension. No pathologic free fluid. Lymph nodes: No central or retroperitoneal adenopathy. Vessels: No infrarenal aortic aneurysm. Bones: No aggressive osseous abnormality. Other: No significant ventral hernia. IMPRESSION: Interstitial pancreatitis without acute peripancreatic fluid collection. Cholelithiasis with gallbladder wall thickening, concerning for acute cholecystitis. No evidence of choledocholithiasis. Reviewed by: Benji Branham MD on 05/22/2023 12:08 PM PST Approved by: Benji Branham MD on 05/22/2023 12:08 PM PST Station ID: [id number]
[2023-05-22 13:45] LABS: BILIRUBIN,DIRECT 3.52 mg/dL (0.03-0.18); BILIRUBIN,INDIRECT 1.4 mg/dL; BILIRUBIN,TOTAL 4.9 mg/dL (0.2-1.0)
[2023-05-22] MEDS: GADOTERATE MEGLUMINE 10 MMOL/20 ML VIAL IVP ONE (16:52)
[2023-05-22] MEDS: NEUTRA-PHOS 250 MG TABLET PO SCH (20:11)
[2023-05-22] MEDS: MAGNESIUM OXIDE 400 MG TABLET PO SCH (20:11)
[2023-05-23 00:09] LABS: HBsAG SCREEN Negative (Negative); HCV AB Non Reactive (Non Reactive); HEPATITIS B CORE IGM AB Negative (Negative)
[2023-05-23 06:19] LABS: BASOPHILS % (AUTO) 0.4 %; EOSINOPHILS # (AUTO) 0.1 10^3/uL (0.0-0.7); EOSINOPHILS % (AUTO) 0.9 %; HCT - HEMATOCRIT 42.4 % (42.0-52.0); HGB - HEMOGLOBIN 13.9 g/dL (14.0-18.0); LYMPHOCYTES # (AUTO) 1.1 10^3/uL (1.5-3.5); LYMPHOCYTES % (AUTO) 15.7 %; MEAN CORPUSCULAR HEMOGLOBIN 29.3 pg (27.0-31.0); MEAN CORPUSCULAR HGB CONC 32.8 g/dL (32.0-36.0); MEAN CORPUSCULAR VOLUME 89.5 fL (80.0-94.0); MEAN PLATELET VOLUME 10.5 fL (7.4-11.4); MONOCYTES # (AUTO) 0.7 10^3/uL (0.0-1.0); MONOCYTES % (AUTO) 10.1 %; NEUTROPHILS # (AUTO) 5.1 10^3/uL (1.5-6.6); NEUTROPHILS % (AUTO) 72.6 %; PLT - PLATELET COUNT 181 10^3/uL (130-450); RED BLOOD COUNT 4.74 10^6/uL (4.70-6.10)
[2023-05-23 06:38] LABS: ALBUMIN 3.4 g/dL (3.2-5.5); ALBUMIN/GLOBULIN RATIO 1.2 (1.0-2.2); BILIRUBIN,TOTAL 3.2 mg/dL (0.2-1.0); CALCIUM 8.8 mg/dL (8.5-10.3); CREATININE 0.5 mg/dL (0.6-1.3); POTASSIUM 3.3 mmol/L (3.5-4.5); TOTAL PROTEIN 6.3 g/dL (6.4-8.9)
--- NOTE | 2023-05-23 07:16 | PROVIDER PROGRESS NOTE ---
Subjective - General Admit Date: 05/21/23 - Other Other Information/Narrative: Patient denies pain this AM. Tolerated diet last night without n/v or increased pain. +void, +BM. No acute events overnight. Objective - Patient Data Reviewed Vital Signs: Yes Vital Signs: Vital Signs x48h Temp Pulse Resp BP Pulse Ox 05/23/23 00:00 37.4 C 70 14 131/82 H 97 Weight: Weight 05/21/23 05/22/23 05/23/23 23:59 23:59 23:59 Weight (kg) 75 kg Intake & Output: Intake and Output Totals x24h 05/21/23 05/22/23 05/23/23 23:59 23:59 23:59 Intake Total 3995.000 2663.333 1000 Balance 3995.000 2663.333 1000 - Lab Results Lab Results: 05/23/23 05:10 05/23/23 05:10 Other Lab Results: Lab Results x24hrs 05/23/23 05/23/23 05/23/23 Range/Units 06:38 05:10 05:10 WBC 7.0 (4.8-10.8) x10^3/uL RBC 4.74 (4.70-6.10) 10^6/uL Hgb 13.9 L (14.0-18.0) g/dL Hct 42.4 (42.0-52.0) % MCV 89.5 (80.0-94.0) fL MCH 29.3 (27.0-31.0) pg MCHC 32.8 (32.0-36.0) g/dL RDW 12.0 (12.0-15.0) % Plt Count 181 (130-450) 10^3/uL MPV 10.5 (7.4-11.4) fL Neut # (Auto) 5.1 (1.5-6.6) 10^3/uL Lymph # (Auto) 1.1 L (1.5-3.5) 10^3/uL [place] # (Auto) 0.7 (0.0-1.0) 10^3/uL Eos # (Auto) 0.1 (0.0-0.7) 10^3/uL Baso # (Auto) 0.0 (0.0-0.1) 10^3/uL Absolute Nucleated RBC 0.00 x10^3/uL Nucleated RBC % 0.0 /100WBC Sodium 138 (135-145) mmol/L Potassium 3.3 L (3.5-4.5) mmol/L Chloride 105 (101-111) mmol/L Carbon Dioxide 22 (21-32) mmol/L Anion Gap 11.0 (6-13) BUN 8 (6-20) mg/dL Creatinine 0.5 L (0.6-1.3) mg/dL Estimated GFR (MDRD) 164 (>89) Glucose 156 H (74-104) mg/dL POC Whole Bld Glucose 142 H (70 - 100) mg/dL Calcium 8.8 (8.5-10.3) mg/dL Total Bilirubin 3.2 H (0.2-1.0) mg/dL Direct Bilirubin (0.03-0.18) mg/dL Indirect Bilirubin mg/dL AST 42 (10-42) IU/L ALT 108 H (10-60) IU/L Alkaline Phosphatase 60 (42-121) IU/L Total Protein 6.3 L (6.4-8.9) g/dL Albumin 3.4 (3.2-5.5) g/dL Globulin 2.9 (2.1-4.2) g/dL Albumin/Globulin Ratio 1.2 (1.0-2.2) Lipase 24 (11-82) U/L Hepatitis A IgM Ab (Negative) Hep Bs Antigen (Negative) Hep B Core IgM Ab (Negative) Hepatitis C Antibody (Non Reactive) Hepatitis C Interp (.) 05/23/23 05/22/23 05/22/23 Range/Units 00:06 20:51 13:10 WBC (4.8-10.8) x10^3/uL RBC (4.70-6.10) 10^6/uL Hgb (14.0-18.0) g/dL Hct (42.0-52.0) % MCV (80.0-94.0) fL MCH (27.0-31.0) pg MCHC (32.0-36.0) g/dL RDW (12.0-15.0) % Plt Count (130-450) 10^3/uL MPV (7.4-11.4) fL Neut # (Auto) (1.5-6.6) 10^3/uL Lymph # (Auto) (1.5-3.5) 10^3/uL [place] # (Auto) (0.0-1.0) 10^3/uL Eos # (Auto) (0.0-0.7) 10^3/uL Baso # (Auto) (0.0-0.1) 10^3/uL Absolute Nucleated RBC x10^3/uL Nucleated RBC % /100WBC Sodium (135-145) mmol/L Potassium (3.5-4.5) mmol/L Chloride (101-111) mmol/L Carbon Dioxide (21-32) mmol/L Anion Gap (6-13) BUN (6-20) mg/dL Creatinine (0.6-1.3) mg/dL Estimated GFR (MDRD) (>89) Glucose (74-104) mg/dL POC Whole Bld Glucose 161 H 191 H (70 - 100) mg/dL Calcium (8.5-10.3) mg/dL Total Bilirubin 4.9 H (0.2-1.0) mg/dL Direct Bilirubin 3.52 H (0.03-0.18) mg/dL Indirect Bilirubin 1.4 mg/dL AST (10-42) IU/L ALT (10-60) IU/L Alkaline Phosphatase (42-121) IU/L Total Protein (6.4-8.9) g/dL Albumin (3.2-5.5) g/dL Globulin (2.1-4.2) g/dL Albumin/Globulin Ratio (1.0-2.2) Lipase (11-82) U/L Hepatitis A IgM Ab (Negative) Hep Bs Antigen (Negative) Hep B Core IgM Ab (Negative) Hepatitis C Antibody (Non Reactive) Hepatitis C Interp (.) 05/22/23 05/22/23 05/21/23 Range/Units 11:26 07:36 08:33 WBC (4.8-10.8) x10^3/uL RBC (4.70-6.10) 10^6/uL Hgb (14.0-18.0) g/dL Hct (42.0-52.0) % MCV (80.0-94.0) fL MCH (27.0-31.0) pg MCHC (32.0-36.0) g/dL RDW (12.0-15.0) % Plt Count (130-450) 10^3/uL MPV (7.4-11.4) fL Neut # (Auto) (1.5-6.6) 10^3/uL Lymph # (Auto) (1.5-3.5) 10^3/uL [place] # (Auto) (0.0-1.0) 10^3/uL Eos # (Auto) (0.0-0.7) 10^3/uL Baso # (Auto) (0.0-0.1) 10^3/uL Absolute Nucleated RBC x10^3/uL Nucleated RBC % /100WBC Sodium (135-145) mmol/L Potassium (3.5-4.5) mmol/L Chloride (101-111) mmol/L Carbon Dioxide (21-32) mmol/L Anion Gap (6-13) BUN (6-20) mg/dL Creatinine (0.6-1.3) mg/dL Estimated GFR (MDRD) (>89) Glucose (74-104) mg/dL POC Whole Bld Glucose 176 H 208 H (70 - 100) mg/dL Calcium (8.5-10.3) mg/dL Total Bilirubin (0.2-1.0) mg/dL Direct Bilirubin (0.03-0.18) mg/dL Indirect Bilirubin mg/dL AST (10-42) IU/L ALT (10-60) IU/L Alkaline Phosphatase (42-121) IU/L Total Protein (6.4-8.9) g/dL Albumin (3.2-5.5) g/dL Globulin (2.1-4.2) g/dL Albumin/Globulin Ratio (1.0-2.2) Lipase (11-82) U/L Hepatitis A IgM Ab Negative (Negative) Hep Bs Antigen Negative (Negative) Hep B Core IgM Ab Negative (Negative) Hepatitis C Antibody Non Reactive (Non Reactive) Hepatitis C Interp Comment (.) - Current Medications Current Medications: Current Medications Generic Name Dose Route Start Last Admin Trade Name Freq PRN Reason Stop Dose Admin Acetaminophen 650 mg 05/20/23 22:19 05/22/23 20:11 Acetaminophen 325 Mg Tablet PO 650 mg Q4HR PRN Administration Pain 1 to 4, or Fever Hydromorphone HCl 0.5 mg 05/20/23 22:19 05/22/23 01:10 Hydromorphone 0.5 Mg/0.5 Ml Syringe IVP 0.5 mg Q2H PRN Administration Pain 8 to 10 Sodium Chloride 1,000 mls @ 100 mls/hr 05/20/23 23:00 05/23/23 03:32 Normal Saline 0.9% IV 100 mls/hr .Q10H JOEL Administration Piperacillin Sod/Tazobactam 100 mls @ 200 mls/hr 05/21/23 06:00 05/23/23 06:30 Sod 3.375 gm/ Sodium Chloride IV 200 mls/hr Q8HR JOEL Administration Insulin Human Regular 1 - 5 unit 05/22/23 12:00 05/23/23 06:40 Insulin Regular Human 300 Unit/3 Ml Vial SUBQ Not Given Q6HR [facility] Protocol Magnesium Oxide 400 mg 05/22/23 20:00 05/22/23 20:11 Magnesium Oxide 400 Mg Tablet PO 400 mg DAILYWM JOEL Administration Sodium Chloride 10 ml 05/21/23 01:00 05/23/23 01:17 Sodium Chloride Flush 0.9% 10 Ml Syringe IVP Not Given 0100,0900,1700 [facility] Sodium Phosphate 250 mg 05/22/23 20:00 05/22/23 20:11 Neutra-Phos 250 Mg Tablet PO 250 mg TIDWM JOEL Administration - Physical Exam General Appearance: positive: No acute distress, Alert Eyes Bilateral: positive: Normal inspection, No scleral icterus ENT: positive: No signs of dehydration Neck: positive: Trachea midline Respiratory: positive: No respiratory distress Cardiovascular: positive: Regular rate & rhythm Abdomen: positive: Non-tender, No distention. negative: Guarding, Rebound Skin: positive: No rash Extremities: positive: Full ROM Neurologic/Psychiatric: positive: Oriented x3 Impression/Plan - Problem List Problem List: 72 y/o M with: 1) Gallstone pancreatitis - Resolved. Pain resolved. No choledocholithiasis on MRCP, LFT's improving. To prevent further episodes, plan for cholecystectomy later today. I discussed the natural history of gallstones with the patient. We also discussed the risks, benefits, and alternatives of laparoscopic cholecystectomy with cholangiogram and possible open procedure. We discussed surgical risks including bleeding, infection, and damage to surrounding structures. We also discussed the intraoperative and postoperative plan including the possible need for drain placement and possibility of an open procedure. The patient voiced understanding, his questions were answered, and he wished to proceed with surgery. A consent was signed by the patient. 2) Hyperbilirubinemia - improving. 3) Small (6 mm) splenic hilar abscess on CT (appears to originate from the medial aspect of the proximal descending colon). This is too small to consider IR drainage and should resolve with antibiotics. Colonoscopy should be considered in 6-10 weeks. 4) Pre-diabetes- continue to follow blood glucose levels NPO this AM for procedure later today. Surgery will continue to follow closely.
--- NOTE | 2023-05-23 11:21 | ANESTHESIA ---
Pre-Anesthesia VS, & Labs - Diagnosis acute on chronic cholecystitis - Procedure lap nany Vital Signs: Temp Pulse Resp BP Pulse Ox O2 Flow Rate 36.1 C L 67 18 125/78 95 05/23/23 08:34 05/23/23 08:34 05/23/23 08:34 05/23/23 08:34 05/23/23 08:34 Height: 6 ft Weight (kg): 75 kg Body Mass Index: 22.4 BMI Classification: Normal - NPO >8 hours - Lab Results Current Lab Results: Laboratory Tests 05/23/23 06:38: POC Whole Bld Glucose 142 H 05/23/23 05:10: Sodium 138, Potassium 3.3 L, Chloride 105, Carbon Dioxide 22, Anion Gap 11.0, BUN 8, Creatinine 0.5 L, Estimated GFR (MDRD) 164, Glucose 156 H , Calcium 8.8, Total Bilirubin 3.2 H, AST 42, ALT 108 H, Alkaline Phosphatase 60, Total Protein 6.3 L, Albumin 3.4, Globulin 2.9, Albumin/Globulin Ratio 1.2, Lipase 24 05/23/23 05:10: WBC 7.0, RBC 4.74, Hgb 13.9 L, Hct 42.4, MCV 89.5, MCH 29.3, MCHC 32.8, RDW 12.0, Plt Count 181, MPV 10.5, Neut # (Auto) 5.1, Lymph # (Auto) 1.1 L, [place] # (Auto) 0.7, Eos # (Auto) 0.1, Baso # (Auto) 0.0, Absolute Nucleated RBC 0.00, Nucleated RBC % 0.0 05/23/23 00:06: POC Whole Bld Glucose 161 H 05/22/23 20:51: POC Whole Bld Glucose 191 H 05/22/23 13:10: Total Bilirubin 4.9 H, Direct Bilirubin 3.52 H, Indirect Bilirubin 1.4 05/22/23 11:26: POC Whole Bld Glucose 176 H 05/22/23 07:36: POC Whole Bld Glucose 208 H 05/22/23 04:51: Sodium 136, Potassium 3.6, Chloride 103, Carbon Dioxide 26, Anion Gap 7.0, BUN 9, Creatinine 0.7, Estimated GFR (MDRD) 111, Glucose 227 H, Calcium 8.8, Phosphorus 2.3 L, Magnesium 1.7, Total Bilirubin 6.4 H, AST 78 H, ALT 148 H, Alkaline Phosphatase 47, Total Protein 5.8 L, Albumin 3.4, Globulin 2.4, Albumin/Globulin Ratio 1.4, Lipase 127 H 05/22/23 04:51: WBC 5.9, RBC 4.54 L, Hgb 13.4 L, Hct 41.0 L, MCV 90.3, MCH 29.5, MCHC 32.7, RDW 12.1, Plt Count 175, MPV 10.2, Neut # (Auto) 4.3, Lymph # (Auto) 1.0 L, [place] # (Auto) 0.5, Eos # (Auto) 0.0, Baso # (Auto) 0.0, Absolute Nucleated RBC 0.00, Nucleated RBC % 0.0 05/21/23 20:30: POC Whole Bld Glucose 320 H 05/21/23 04:57: Triglycerides 136, Cholesterol 168, LDL Cholesterol, Calc 110, VLDL Cholesterol 27, HDL Cholesterol 31 L, LDL/HDL Ratio 3.5, Cholesterol/HDL Ratio 5.4 05/21/23 04:57: Estimat Average Glucose 364 H, Hemoglobin A1c % 14.3 H 05/21/23 04:57: Sodium 135, Potassium 4.0, Chloride 99 L, Carbon Dioxide 27, Anion Gap 9.0, BUN 11, Creatinine 0.7, Estimated GFR (MDRD) 111, Glucose 319 H, Calcium 9.1, Total Bilirubin 4.9 H, AST 209 H, ALT 226 H, Alkaline Phosphatase 48, Total Protein 6.5, Albumin 3.9, Globulin 2.6, Albumin/Globulin Ratio 1.5, Lipase 1510 H 05/21/23 04:57: WBC 7.2, RBC 4.96, Hgb 14.7, Hct 43.7, MCV 88.1, MCH 29.6, MCHC 33.6, RDW 12.1, Plt Count 199, MPV 10.7, Neut # (Auto) 5.5, Lymph # (Auto) 1.0 L , [place] # (Auto) 0.7, Eos # (Auto) 0.0, Baso # (Auto) 0.0, Absolute Nucleated RBC 0.00, Nucleated RBC % 0.0 05/20/23 19:16: Triglycerides 234 05/20/23 18:04: Sodium 136, Potassium 3.9, Chloride 94 L, Carbon Dioxide 31, Anion Gap 11.0, BUN 12, Creatinine 0.8, Estimated GFR (MDRD) 96, Glucose 477 H, Calcium 10.0, Total Bilirubin 3.4 H, AST 213 H, ALT 215 H, Alkaline Phosphatase 60, Total Protein 7.9, Albumin 4.6, Globulin 3.3, Albumin/Globulin Ratio 1.4, Lipase > 6000 H 05/20/23 18:04: WBC 9.5, RBC 5.46, Hgb 16.0, Hct 48.7, MCV 89.2, MCH 29.3, MCHC 32.9, RDW 11.9 L, Plt Count 220, MPV 9.8, Neut # (Auto) 7.3 H, Lymph # (Auto) 1.4 L, [place] # (Auto) 0.8, Eos # (Auto) 0.0, Baso # (Auto) 0.0, Absolute Nucl eated RBC 0.00, Nucleated RBC % 0.0 Fish Bones: 05/23/23 05:10 05/23/23 05:10 Home Medications and Allergies Active Medications Acetaminophen (Acetaminophen 325 Mg Tablet) 650 mg PO Q4HR PRN PRN Reason: Pain 1 to 4, or Fever Last Admin: 05/22/23 20:11 Dose: 650 mg Hydrocodone Bitart/Acetaminophen (Hydrocod/Acetam 5/325 Mg Tablet) 1 tab PO Q4HR PRN PRN Reason: Pain 5 to 7 Hydromorphone HCl (Hydromorphone 0.5 Mg/0.5 Ml Syringe) 0.5 mg IVP Q2H PRN PRN Reason: Pain 8 to 10 Last Admin: 05/22/23 01:10 Dose: 0.5 mg Sodium Chloride (Normal Saline 0.9%) 1,000 mls @ 100 mls/hr IV .Q10H JOEL Last Admin: 05/23/23 03:32 Dose: 100 mls/hr Piperacillin Sod/Tazobactam (Sod 3.375 gm/ Sodium Chloride) 100 mls @ 200 mls/hr IV Q8HR [facility] Last Infusion: 05/23/23 07:05 Dose: Infused Insulin Human Regular (Insulin Regular Human 300 Unit/3 Ml Vial) 1 - 5 unit SUBQ Q6HR [facility]; Protocol Last Admin: 05/23/23 06:40 Dose: Not Given Magnesium Oxide (Magnesium Oxide 400 Mg Tablet) 400 mg PO DAILYWM [facility] Last Admin: 05/23/23 08:42 Dose: 400 mg Ondansetron HCl (Ondansetron 4 Mg/2 Ml Vial) 4 mg IVP Q6HR PRN PRN Reason: Nausea / Vomiting Sodium Chloride (Sodium Chloride Flush 0.9% 10 Ml Syringe) 10 ml IVP PRN PRN PRN Reason: NEEDED PER PROVIDER ORDERS Sodium Chloride (Sodium Chloride Flush 0.9% 10 Ml Syringe) 10 ml IVP 0100,0900,1700 [facility] Last Admin: 05/23/23 08:43 Dose: 10 ml Sodium Phosphate (Neutra-Phos 250 Mg Tablet) 250 mg PO TIDWM [facility] Last Admin: 05/23/23 08:42 Dose: 250 mg No Known Home Medications 09/24/20 Allergies/Adverse Reactions: Allergies Allergy/AdvReac Type Severity Reaction Status Date / Time No Known Drug Allergies Allergy Verified 05/20/23 17:54 Anes History & Medical History - Anesthetic History Anesthesia Complications: reports: No previous complications Family history of Anesthesia Complications: Denies Family history of Malignant Hyperthermia: Denies - Medical History Cardiovascular: reports: None Pulmonary: reports: None Gastrointestinal: reports: Pancreatitis Urinary: reports: None Musculoskeletal: reports: None Endocrine/Autoimmune: reports: None Skin: reports: None Smoking Status: Never smoker Psychosocial: reports: No issues indicated History of Cancer?: No - Surgical History General: reports: Colonoscopy Eyes Ears Nose Throat (EENT): reports: Tonsil/Adenoidectomy Orthopedic: reports: Other Exam General: Alert, Oriented x3, Cooperative Dental: WNL Mouth Openin Fingerbreadth Neck Mobility: Normal Mallampati classification: I Thyromental Distance: 4-6 cm Respiratory: Lungs clear Cardiovascular: Regular rate Plan Anesthesia Type: General Consent for Procedure(s) Verified and Reviewed: Yes Code Status: Attempt Resuscitation ASA classification: 2-Mild systemic disease Is this case an emergency?: No
[2023-05-23] MEDS ORDERED: fentaNYL 100 MCG/2 ML VIAL IVP PRN (11:22)
[2023-05-23] MEDS ORDERED: METOCLOPRAMIDE 10 MG/2 ML VIAL IVP PRN (11:22)
[2023-05-23] MEDS ORDERED: ONDANSETRON 4 MG/2 ML VIAL IVP PRN ×2 (11:22→16:57)
[2023-05-23] MEDS ORDERED: ePHEDrine 50 MG/ML VIAL IVP PRN (11:22)
[2023-05-23] MEDS ORDERED: ATROPINE ABBOJECT 1 MG/10 ML SYRINGE IVP PRN (11:22)
[2023-05-23] MEDS ORDERED: MORPHINE 2 MG/ML CARPUJECT IVP PRN (11:22)
[2023-05-23] MEDS ORDERED: NALOXONE 0.4 MG/ML VIAL IVP PRN (11:22)
[2023-05-23] MEDS ORDERED: HYDROmorphone 0.5 MG/0.5 ML SYRINGE IVP PRN (11:22)
[2023-05-23] MEDS ORDERED: MIDAZOLAM 2 MG/2 ML VIAL ONE (13:55)
[2023-05-23] MEDS ORDERED: LIDOCAINE-PF 2% 10 ML AMP SUBQ ONE (13:56)
[2023-05-23] MEDS ORDERED: PROPOFOL 200 MG/20 ML VIAL IVP ONE ×2 (13:56→16:38)
[2023-05-23] MEDS ORDERED: ONDANSETRON 4 MG/2 ML VIAL ONE (13:56)
[2023-05-23] MEDS ORDERED: KETOROLAC 30 MG/ML VIAL ONE (13:56)
[2023-05-23] MEDS ORDERED: ROCURONIUM 50 MG/5 ML VIAL ONE ×2 (13:56→15:35)
[2023-05-23] MEDS ORDERED: fentaNYL 100 MCG/2 ML VIAL ONE ×2 (13:56→16:04)
[2023-05-23] MEDS ORDERED: LIDOCAINE 1%-EPI 1:100000 20 ML MDV ONE (13:59)
[2023-05-23] MEDS ORDERED: iohexoL-240 10 ML VIAL IVP ONE (13:59)
[2023-05-23] MEDS ORDERED: BUPIVACAINE 0.5% PF 10 ML VIAL ONE (13:59)
[2023-05-23] MEDS ORDERED: ceFAZolin 1 GM VIAL ONE (15:13)
[2023-05-23] MEDS: LACTATED RINGERS 1,000 ML IV SCH (15:20)
[2023-05-23] MEDS ORDERED: ACETAMINOPHEN 1,000 MG/100 ML 1,000 MG/100 ML BAG IV ONE (15:28)
[2023-05-23] MEDS ORDERED: metroNIDAZOLE 500 MG/100 ML 500 MG/100 ML BAG ONE (15:32)
[2023-05-23] MEDS: LIDOCAINE MPF 2%-EPI 1:200000 20 ML VIAL SUBQ ONE (15:40)
[2023-05-23] MEDS: IOTHALAMATE MEGLUMINE 50 ML VIAL IVP ONE (15:40)
[2023-05-23] MEDS: BUPIVACAINE 0.5% PF 30 ML VIAL SUBQ ONE (15:41)
[2023-05-23] MEDS ORDERED: SUGAMMADEX 200 MG/2 ML VIAL IVP ONE (16:04)
--- NOTE | 2023-05-23 16:50 | XRAY Report ---
PROCEDURE: OR Cholangiogram INDICATIONS: Cholangiogram COMPARISON: 05/22/2023 MRI Findings and impression: Intraoperative cholangiogram images were obtained. Cholecystectomy clips are seen. There is contrast flow within the biliary system, with contrast seen in the bowel. Please see operative note for full d etails. Reviewed by: Andrade Kaur MD on 05/23/2023 4:48 PM PST Approved by: Andrade Kaur MD on 05/23/2023 4:48 PM PST Station ID: [id number]
[2023-05-23] MEDS: LACTATED RINGERS 1,000 ML IV ONE (16:55)
[2023-05-23] MEDS ORDERED: oxyCODONE 5 MG TABLET PO PRN (16:57)
--- NOTE | 2023-05-23 17:02 | OPERATIVE REPORT ---
Operative Report - General Admit Date: 05/21/23 Procedure Date: 05/23/23 Planned Procedure: lap cholecystectomy with cholangiogram Pre-Op Diagnosis: gallstone pancreatitis, chronic cholecystitis, cholelithiasis Procedure Performed: lap nany with IOC Post Op Diagnosis: cholelithiasis, chronic cholecystitis, h/o gallstone pancreatitis - Procedure Note Primary Surgeon: Dr. Johana Blackmon Anesthesia Provider: Caro Willingham CRNA Anesthesia Technique: General ET tube, Local Pathology: gallbladder and contents Estimated Blood Loss (mL): 20 Indications: The patient presented with gallstone pancreatitis. He had a similar episode of pancreatitis approximately 10 years ago but no etiology was ever determined. I discussed the natural history of gallstones with the patient. We also discussed the risks, benefits, and alternatives of laparoscopic cholecystectomy with cholangiogram and possible open procedure. We discussed surgical risks including bleeding, infection, and damage to surrounding structures. We also discussed the intraoperative and postoperative plan including the possible need for drain placement and possibility of an open procedure. The patient voiced understanding, his questions were answered, and he wished to proceed with surgery. A consent was signed by the patient. Findings: 1. Normal-appearing cholangiogram 2. Gallstones Complications: -Partial insufflation of the mesentery, bowel appeared viable and pink - Other Other Information/Narrative: The patient was brought to the operative suite and placed in the supine position. General endotracheal anesthesia was induced. Preoperative antibiotics were given. ERAS protocol was not followed due to the patient being n.p.o. for pancreatitis. A preop surgical timeout was performed. Local anesthetic was injected into the skin and subcutaneous tissues just inferior to the umbilicus. An 11 blade scalpel was used to make a 5 mm transverse skin incision in this location. Next, a hemostat was used to spread the tissues down to the level of the fascia and a Roderick clamp was used to grasp and elevate the umbilical stalk. A Varess needle was used to gain access to the peritoneal space. Low flow insufflation revealed low pressures and then high flow insufflation was undertaken to 15 mmHg. Next, the Varess needle was removed and a 5 mm laparoscopic port was inserted in this location. Through this port, a 5 mm 30 degree laparoscope was inserted. On inspection of the abdomen, the mesentery to the small bowel had been partially insufflated. The bowel appeared healthy. Next, the patient was placed in reverse Trendelenburg and rotated slightly to the left. Two 5 mm ports were inserted in the right upper quadrant, one in the anterior axillary line and the other in the midclavicular line. Also, a 12 mm port was inserted in the subxiphoid region. All ports were placed by first anesthetizing the skin and subcutaneous tissues with local anesthetic, then by making an appropriate length incision with an 11 blade scalpel, and finally by placing the port under direct laparoscopic vision. Once the ports were in place, a ratcheted, toothed grasper was used to elevate the fundus of the gallbladder toward the patient's right shoulder. Next, the peritoneum was incised starting at the hilum of the gallbladder and working toward the fundus along the gallbladder liver interface on the medial and lateral aspects of the gallbladder. Next, attention was returned to the hilum of the gallbladder. The alveolar tissues in this region were taken down with blunt and sharp dissection with electrocautery taking great care not to cauterize though any tissue I could not easily see through. Two ductal structures were isolated and skeletonized such that each ductal structure could be visualized with liver present on either side. The cystic plate was also developed. At this time, it was felt that a critical view of safety had been obtained. Next, a clip was placed distally, that is toward the gallbladder, on the cystic duct and just proximal to this a ductotomy was performed. A cholangiogram catheter was placed within the duct and it was flushed with saline. There was no leakage and it flushed easily. Clips were also placed proximally and distally on the cystic artery. Full strength Isovue dye was then placed on the cholangiogram catheter and a cholangiogram was performed. The cholangiogram appeared normal. There was good filling of the right and left hepatic system as well as the duodenum and common bile duct. There were no filling defects. Next, the cholangiogram catheter was removed. Two clips were placed proximally on the cystic duct. The cystic duct and cystic artery were divided using laparoscopic scissors between the clips. Next the gallbladder was dissected off of the liver bed. Once it was completely freed, the gallbladder was placed in an Endo Catch bag and removed through the epigastric port. The epigastric port was replaced and suction and irrigation were used to remove any fluid from the right upper quadrant. This was done until the fluid returned was clear. Next, quarter percent Marcaine with epinephrine in the amount of 10 mL was infused into the right upper quadrant along the liver diaphragm interface to reduce to postoperative pain. The small bowel was again inspected and appeared pink and viable, despite some air still being present in the mesentery. Next, a laparoscopic fascial closure device was used to place a single interrupted 0 Vicryl suture at the epigastric port. This reapproximated the fascia well. The remaining ports were removed under direct laparoscopic vision and the abdomen was deflated. Next, the skin edges were reapproximated with 4-0 Monocryl in an interrupted subcuticular fashion. A sterile dressing of skin glue was placed. The patient tolerated the procedure well. The patient was extubated in the operating room and transferred to the recovery room in stable condition.
--- NOTE | 2023-05-23 17:41 | ANESTHESIA POST OP EVALUATION ---
Anesthesia Post Eval - Post Anesthesia Eval Vitals: Last Vital Signs Temp 36.5 C 05/23/23 17:20 Pulse 62 05/23/23 17:35 Resp 16 05/23/23 17:35 BP 120/62 05/23/23 17:35 Pulse Ox 94 05/23/23 17:35 O2 Flow Rate CV Function Including HR & BP: Stable Pain Control: Satisfactory Nausea & Vomiting: Negative Mental Status: Baseline Respiratory Status: Airway Patent Hydration Status: Satisfactory Anesthesia Complications: None
--- NOTE | 2023-05-23 18:24 | PROVIDER PROGRESS NOTE ---
Assessment/Plan - Problem List (1) Pancreatitis Qualifiers: Chronicity: acute Pancreatitis type: unspecified pancreatitis type Acute pancreatitis complication: unspecified Qualified Code(s): K85.90 - Acute pancreatitis without necrosis or infection, unspecified Assessment/Plan: This was gallstone-induced pancreatitis Patient underwent successful lap cholecystectomy today. There was fluid around the pancreas but no abscess Plan: Continue IV fluids, with tapering down rate as he starts to eat and drink Advance diet as tolerated. (2) New onset Diabetes Mellitus, Type 2 Assessment/Plan: Hemoglobin A1c is 14 hemoglobin A1c is 14. This is new onset DM for this pt Plan: He will start a Diabetic diet after today's cholecystectomy Continue Sliding scale insulin. I will start him on Metformin BID, in am, in anticipation for DCh soon He will also require RN diabetic teaching prior to discharge. I will order this (3) Transaminitis Assessment/Plan: Probably caused by gallstones as well. Plan: Follow LFTs (4) Gallstones Assessment/Plan: He underwent cholecystectomy today. I discussed the pt with Dr Blackmon. Plan: OK to resume diet, can be solids per Dr Blackmon Pain control - Current Meds Current Meds: Current Medications Generic Name Dose Route Start Last Admin Trade Name Freq PRN Reason Stop Dose Admin Hydromorphone HCl 0.5 mg 05/20/23 22:19 05/22/23 01:10 Hydromorphone 0.5 Mg/0.5 Ml Syringe IVP 0.5 mg Q2H PRN Administration Pain 8 to 10 Sodium Chloride 1,000 mls @ 100 mls/hr 05/20/23 23:00 05/23/23 15:20 Normal Saline 0.9% IV Infused .Q10H JOEL Infusion Insulin Human Regular 1 - 5 unit 05/22/23 12:00 05/23/23 11:53 Insulin Regular Human 300 Unit/3 Ml Vial SUBQ Not Given Q6HR JOEL Protocol Magnesium Oxide 400 mg 05/22/23 20:00 05/23/23 08:42 Magnesium Oxide 400 Mg Tablet PO 400 mg DAILYWM JOEL Administration Sodium Chloride 10 ml 05/21/23 01:00 05/23/23 08:43 Sodium Chloride Flush 0.9% 10 Ml Syringe IVP 10 ml 0100,0900,1700 JOEL Administration Sodium Phosphate 250 mg 05/22/23 20:00 05/23/23 11:53 Neutra-Phos 250 Mg Tablet PO 250 mg TIDWM JOEL Administration - Lab Result Fish Bone Diagrams: 05/24/23 04:52 05/24/23 04:52 - Additional Planning My Orders: My Active Orders 05/24/23 08:00 metFORMIN [Glucophage] 500 mg PO BIDWM Subjective - Subjective Patient Reports: No Complaints Objective Vital Signs: Vital Signs - 24 hr 05/23/23 05/23/23 05/23/23 00:00 08:34 16:51 Temperature 37.4 C 36.1 C L 36.3 C L Heart Rate 76 Heart Rate [ 70 67 Brachial] Respiratory 14 18 18 Rate Blood Pressure 136/70 H Blood Pressure 131/82 H 125/78 [Left Brachial artery] O2 Saturation 97 95 100 05/23/23 05/23/23 05/23/23 16:56 17:03 17:08 Temperature 36.3 C L 36.4 C L 36.4 C L Heart Rate 75 74 70 Heart Rate [ Brachial] Respiratory 17 17 17 Rate Blood Pressure 124/72 124/75 118/74 Blood Pressure [Left Brachial artery] O2 Saturation 97 96 96 05/23/23 05/23/23 05/23/23 17:14 17:20 17:35 Temperature 36.4 C L 36.5 C Heart Rate 68 Heart Rate [ 67 62 Brachial] Respiratory 19 16 16 Rate Blood Pressure 121/72 Blood Pressure 125/67 120/62 [Left Brachial artery] O2 Saturation 99 95 94 05/23/23 18:05 Temperature 36.6 C Heart Rate Heart Rate [ 60 Brachial] Respiratory 18 Rate Blood Pressure Blood Pressure 114/72 [Left Brachial artery] O2 Saturation 96 Oxygen O2 Source Room air I&O (Last 24 Hrs): Intake and Output Totals x24h 05/21/23 05/22/23 05/23/23 23:59 23:59 23:59 Intake Total 3995.000 2663.333 2100 Balance 3995.000 2663.333 2100 General: Alert, Oriented x3 HEENT: EOMI, Mucous membr. moist/pink Neck: Supple Neuro: Alert, Non Focal Cardiovascular: Regular rate, No murmurs Respiratory: No respiratory distress, Breath sounds nml Abdomen: Soft, Other (Diminished bowel sounds, minimally tender) Extremities: No clubbing, No edema, No tenderness/swelling - Results Results: Laboratory Results WBC 7.0 x10^3/uL (4.8-10.8) 05/23/23 05:10 RBC 4.74 10^6/uL (4.70-6.10) 05/23/23 05:10 Hgb 13.9 g/dL (14.0-18.0) L 05/23/23 05:10 Hct 42.4 % (42.0-52.0) 05/23/23 05:10 MCV 89.5 fL (80.0-94.0) 05/23/23 05:10 MCH 29.3 pg (27.0-31.0) 05/23/23 05:10 MCHC 32.8 g/dL (32.0-36.0) 05/23/23 05:10 RDW 12.0 % (12.0-15.0) 05/23/23 05:10 Plt Count 181 10^3/uL (130-450) 05/23/23 05:10 MPV 10.5 fL (7.4-11.4) 05/23/23 05:10 Neut # (Auto) 5.1 10^3/uL (1.5-6.6) 05/23/23 05:10 Lymph # (Auto) 1.1 10^3/uL (1.5-3.5) L 05/23/23 05:10 [place] # (Auto) 0.7 10^3/uL (0.0-1.0) 05/23/23 05:10 Eos # (Auto) 0.1 10^3/uL (0.0-0.7) 05/23/23 05:10 Baso # (Auto) 0.0 10^3/uL (0.0-0.1) 05/23/23 05:10 Absolute Nucleated RBC 0.00 x10^3/uL 05/23/23 05:10 Nucleated RBC % 0.0 /100WBC 05/23/23 05:10 Sodium 138 mmol/L (135-145) 05/23/23 05:10 Potassium 3.3 mmol/L (3.5-4.5) L 05/23/23 05:10 Chloride 105 mmol/L (101-111) 05/23/23 05:10 Carbon Dioxide 22 mmol/L (21-32) 05/23/23 05:10 Anion Gap 11.0 (6-13) 05/23/23 05:10 BUN 8 mg/dL (6-20) 05/23/23 05:10 Creatinine 0.5 mg/dL (0.6-1.3) L 05/23/23 05:10 Estimated GFR (MDRD) 164 (>89) 05/23/23 05:10 Glucose 156 mg/dL (74-104) H 05/23/23 05:10 POC Whole Bld Glucose 158 mg/dL (70 - 100) H 05/23/23 17:48 Estimat Average Glucose 364 mg/dL (70-100) H 05/21/23 04:57 Hemoglobin A1c % 14.3 % (4.27-6.07) H 05/21/23 04:57 Calcium 8.8 mg/dL (8.5-10.3) 05/23/23 05:10 Phosphorus 2.3 mg/dL (2.5-5.0) L 05/22/23 04:51 Magnesium 1.7 mg/dL (1.7-2.3) 05/22/23 04:51 Total Bilirubin 3.2 mg/dL (0.2-1.0) H 05/23/23 05:10 Direct Bilirubin 3.52 mg/dL (0.03-0.18) H 05/22/23 13:10 Indirect Bilirubin 1.4 mg/dL 05/22/23 13:10 AST 42 IU/L (10-42) 05/23/23 05:10 ALT 108 IU/L (10-60) H 05/23/23 05:10 Alkaline Phosphatase 60 IU/L (42-121) 05/23/23 05:10 Total Protein 6.3 g/dL (6.4-8.9) L 05/23/23 05:10 Albumin 3.4 g/dL (3.2-5.5) 05/23/23 05:10 Globulin 2.9 g/dL (2.1-4.2) 05/23/23 05:10 Albumin/Globulin Ratio 1.2 (1.0-2.2) 05/23/23 05:10 Triglycerides 136 mg/dL (48-352) 05/21/23 04:57 Cholesterol 168 mg/dL (-200) 05/21/23 04:57 LDL Cholesterol, Calc 110 mg/dL (-129) 05/21/23 04:57 VLDL Cholesterol 27 mg/dL 05/21/23 04:57 HDL Cholesterol 31 mg/dL (60-) L 05/21/23 04:57 LDL/HDL Ratio 3.5 (<3.6) 05/21/23 04:57 Cholesterol/HDL Ratio 5.4 (<5.0) 05/21/23 04:57 Lipase 24 U/L (11-82) 05/23/23 05:10 Urine Color DARK YELLOW 05/20/23 22:58 Urine Clarity CLEAR (CLEAR) 05/20/23 22:58 Urine pH 5.5 PH (5.0-7.5) 05/20/23 22:58 Ur Specific Tiff 1.015 (1.002-1.030) 05/20/23 22:58 Urine Protein NEGATIVE mg/dL (NEGATIVE) 05/20/23 22:58 Urine Glucose (UA) >=1000 mg/dL (NEGATIVE) H 05/20/23 22:58 Urine Ketones 40 mg/dL (NEGATIVE) H 05/20/23 22:58 Urine Occult Blood NEGATIVE (NEGATIVE) 05/20/23 22:58 Urine Nitrite NEGATIVE (NEGATIVE) 05/20/23 22:58 Urine Bilirubin SMALL (NEGATIVE) H 05/20/23 22:58 Urine Urobilinogen 0.2 (NORMAL) E.U./dL (NORMAL) 05/20/23 22:58 Ur Leukocyte Esterase NEGATIVE (NEGATIVE) 05/20/23 22:58 Ur Microscopic Review NOT INDICATED 05/20/23 22:58 Urine Culture Comments NOT INDICATED 05/20/23 22:58 Hepatitis A IgM Ab Negative (Negative) 05/21/23 08:33 Hep Bs Antigen Negative (Negative) 05/21/23 08:33 Hep B Core IgM Ab Negative (Negative) 05/21/23 08:33 Hepatitis C Antibody Non Reactive (Non Reactive) 05/21/23 08:33 Hepatitis C Interp Comment (.) 05/21/23 08:33 Sepsis Event Note (H) - Evaluation Current Stage of Sepsis: Ruled out
[2023-05-23] MEDS: INSULIN LISPRO 300 UNIT/3 ML PEN SUBQ SCH (20:34)
[2023-05-24] MEDS: IBUPROFEN 600 MG TABLET PO PRN (00:15)
[2023-05-24] MEDS: ACETAMINOPHEN 325 MG TABLET PO PRN (04:24)
[2023-05-24 05:00] LABS: HCT - HEMATOCRIT 37.9 % (42.0-52.0); HGB - HEMOGLOBIN 12.2 g/dL (14.0-18.0); MEAN CORPUSCULAR HEMOGLOBIN 29.4 pg (27.0-31.0); MEAN CORPUSCULAR HGB CONC 32.2 g/dL (32.0-36.0); MEAN CORPUSCULAR VOLUME 91.3 fL (80.0-94.0); MEAN PLATELET VOLUME 9.6 fL (7.4-11.4); RED BLOOD COUNT 4.15 10^6/uL (4.70-6.10); RED CELL DISTRIBUTION WIDTH 12.3 % (12.0-15.0); WHITE BLOOD COUNT 5.2 x10^3/uL (4.8-10.8)
[2023-05-24 05:16] LABS: ALBUMIN 3.1 g/dL (3.2-5.5); ALBUMIN/GLOBULIN RATIO 1.2 (1.0-2.2); BILIRUBIN,TOTAL 1.9 mg/dL (0.2-1.0); CALCIUM 8.4 mg/dL (8.5-10.3); CREATININE 0.5 mg/dL (0.6-1.3); POTASSIUM 3.3 mmol/L (3.5-4.5); TOTAL PROTEIN 5.6 g/dL (6.4-8.9)
--- NOTE | 2023-05-24 06:41 | PROVIDER PROGRESS NOTE ---
Subjective - General Admit Date: 05/21/23 Procedure Date: 05/23/23 Post Op Days: 1 Procedure Performed: lap nany with IOC - Other Other Information/Narrative: Pain controlled with PO meds. Tolerating diet. No n/v. No f/c. +void, +ambulation. Objective - Patient Data Reviewed Vital Signs: Yes Weight: Weight 05/22/23 05/23/23 05/24/23 23:59 23:59 23:59 Weight (kg) 75 kg 75 kg Intake & Output: Intake and Output Totals x24h 05/22/23 05/23/23 05/24/23 23:59 23:59 23:59 Intake Total 2663.333 2740 868.333 Output Total 400 Balance 2663.333 2340 868.333 - Lab Results Lab Results: 05/24/23 04:52 05/24/23 04:52 Other Lab Results: Lab Results x24hrs 05/24/23 05/24/23 05/23/23 Range/Units 04:52 04:52 20:31 WBC 5.2 (4.8-10.8) x10^3/uL RBC 4.15 L (4.70-6.10) 10^6/uL Hgb 12.2 L (14.0-18.0) g/dL Hct 37.9 L (42.0-52.0) % MCV 91.3 (80.0-94.0) fL MCH 29.4 (27.0-31.0) pg MCHC 32.2 (32.0-36.0) g/dL RDW 12.3 (12.0-15.0) % Plt Count 173 (130-450) 10^3/uL MPV 9.6 (7.4-11.4) fL Sodium 138 (135-145) mmol/L Potassium 3.3 L (3.5-4.5) mmol/L Chloride 108 (101-111) mmol/L Carbon Dioxide 22 (21-32) mmol/L Anion Gap 8.0 (6-13) BUN 11 (6-20) mg/dL Creatinine 0.5 L (0.6-1.3) mg/dL Estimated GFR (MDRD) 164 (>89) Glucose 148 H (74-104) mg/dL POC Whole Bld Glucose 234 H (70 - 100) mg/dL Calcium 8.4 L (8.5-10.3) mg/dL Total Bilirubin 1.9 H (0.2-1.0) mg/dL AST 48 H (10-42) IU/L ALT 79 H (10-60) IU/L Alkaline Phosphatase 49 (42-121) IU/L Total Protein 5.6 L (6.4-8.9) g/dL Albumin 3.1 L (3.2-5.5) g/dL Globulin 2.5 (2.1-4.2) g/dL Albumin/Globulin Ratio 1.2 (1.0-2.2) Lipase (11-82) U/L 05/23/23 05/23/23 05/23/23 Range/Units 17:48 11:37 06:38 WBC (4.8-10.8) x10^3/uL RBC (4.70-6.10) 10^6/uL Hgb (14.0-18.0) g/dL Hct (42.0-52.0) % MCV (80.0-94.0) fL MCH (27.0-31.0) pg MCHC (32.0-36.0) g/dL RDW (12.0-15.0) % Plt Count (130-450) 10^3/uL MPV (7.4-11.4) fL Sodium (135-145) mmol/L Potassium (3.5-4.5) mmol/L Chloride (101-111) mmol/L Carbon Dioxide (21-32) mmol/L Anion Gap (6-13) BUN (6-20) mg/dL Creatinine (0.6-1.3) mg/dL Estimated GFR (MDRD) (>89) Glucose (74-104) mg/dL POC Whole Bld Glucose 158 H 151 H 142 H (70 - 100) mg/dL Calcium (8.5-10.3) mg/dL Total Bilirubin (0.2-1.0) mg/dL AST (10-42) IU/L ALT (10-60) IU/L Alkaline Phosphatase (42-121) IU/L Total Protein (6.4-8.9) g/dL Albumin (3.2-5.5) g/dL Globulin (2.1-4.2) g/dL Albumin/Globulin Ratio (1.0-2.2) Lipase (11-82) U/L 05/23/23 Range/Units 05:10 WBC (4.8-10.8) x10^3/uL RBC (4.70-6.10) 10^6/uL Hgb (14.0-18.0) g/dL Hct (42.0-52.0) % MCV (80.0-94.0) fL MCH (27.0-31.0) pg MCHC (32.0-36.0) g/dL RDW (12.0-15.0) % Plt Count (130-450) 10^3/uL MPV (7.4-11.4) fL Sodium 138 (135-145) mmol/L Potassium 3.3 L (3.5-4.5) mmol/L Chloride 105 (101-111) mmol/L Carbon Dioxide 22 (21-32) mmol/L Anion Gap 11.0 (6-13) BUN 8 (6-20) mg/dL Creatinine 0.5 L (0.6-1.3) mg/dL Estimated GFR (MDRD) 164 (>89) Glucose 156 H (74-104) mg/dL POC Whole Bld Glucose (70 - 100) mg/dL Calcium 8.8 (8.5-10.3) mg/dL Total Bilirubin 3.2 H (0.2-1.0) mg/dL AST 42 (10-42) IU/L ALT 108 H (10-60) IU/L Alkaline Phosphatase 60 (42-121) IU/L Total Protein 6.3 L (6.4-8.9) g/dL Albumin 3.4 (3.2-5.5) g/dL Globulin 2.9 (2.1-4.2) g/dL Albumin/Globulin Ratio 1.2 (1.0-2.2) Lipase 24 (11-82) U/L - Current Medications Current Medications: Current Medications Generic Name Dose Route Start Last Admin Trade Name Freq PRN Reason Stop Dose Admin Acetaminophen 650 mg 05/23/23 16:57 05/24/23 04:24 Acetaminophen 325 Mg Tablet PO 650 mg Q6H PRN Administration Pain or Fever > 38C (100.4F) Hydromorphone HCl 0.5 mg 05/20/23 22:19 05/22/23 01:10 Hydromorphone 0.5 Mg/0.5 Ml Syringe IVP 0.5 mg Q2H PRN Administration Pain 8 to 10 Sodium Chloride 1,000 mls @ 100 mls/hr 05/20/23 23:00 05/24/23 04:25 Normal Saline 0.9% IV 100 mls/hr .Q10H JOEL Administration Ibuprofen 600 mg 05/23/23 16:57 05/24/23 00:15 Ibuprofen 600 Mg Tablet PO 600 mg Q6HR PRN Administration PAIN Insulin Human Lispro 1 - 5 unit 05/23/23 21:00 05/23/23 20:34 Insulin Lispro 300 Unit/3 Ml Pen SUBQ 3 unit 0800,1200,1700,2100 JOEL Administration Protocol Magnesium Oxide 400 mg 05/22/23 20:00 05/23/23 08:42 Magnesium Oxide 400 Mg Tablet PO 400 mg DAILYWM JOEL Administration Sodium Chloride 10 ml 05/21/23 01:00 05/24/23 02:40 Sodium Chloride Flush 0.9% 10 Ml Syringe IVP Not Given 0100,0900,1700 JOEL Sodium Phosphate 250 mg 05/22/23 20:00 05/23/23 18:23 Neutra-Phos 250 Mg Tablet PO 250 mg TIDWM JOEL Administration - Physical Exam Wound/Incisions: positive: Healing well, Dressing dry and intact General Appearance: positive: No acute distress, Alert Eyes Bilateral: positive: Normal inspection ENT: positive: No signs of dehydration Neck: positive: Trachea midline Respiratory: positive: No respiratory distress Cardiovascular: positive: Regular rate & rhythm Abdomen: positive: Tenderness (appropriate, incisional). negative: Guarding, Rebound Skin: positive: No rash Extremities: positive: Full ROM, Nml appearance Neurologic/Psychiatric: positive: Oriented x3 Impression/Plan - Problem List Problem List: 72 y/o M with: 1) Gallstone pancreatitis - Resolved. Pain resolved. No choledocholithiasis on MRCP or cholangiogram, LFT's improving. To prevent further episodes, pt underwent lap nany with IOC on 05/23, now POD#1. Doing well. 2) Hyperbilirubinemia - improving. 3) Small fluid collection near pancreatic tail, likely peripancreatic fluid due to pancreatitis. I discussed the CT with radiology yesterday afternoon. This is NOT felt to be an abscess. I have stopped antibiotics. Plan to reevaluate at post op appt, may order repeat CT at that time, if clinically indicated. No need for short interval colonoscopy as this is not felt to be an abscess. 4) DM- per medicine, plan to start metformin today. I have sent prescriptions for oxycodone and a stool softener to the patient's pharmacy of choice ([facility]). He is stable for discharge from a surgery standpoint. I would like him to follow up with me in clinic in two weeks.
[2023-05-24] MEDS: metFORMIN 500 MG TABLET PO SCH (08:14)
[2023-05-24 08:16] VITALS: BP 111/73; O2SAT 98
--- NOTE | 2023-05-24 14:32 | Discharge Plan ---
Discharge Plan Problem Reviewed?: Yes Disposition: Home, Self Care Condition: Fair Prescriptions: Blood-Glucose Meter [Glucometer] 1 ea SUBQ ACHS #1 each metFORMIN [Glucophage] 500 mg PO BID #60 tab polyethylene glycoL 3350(BULK) [Miralax] 17 gm PO DAILY #238 gm Lancets/Blood Glucose Strips [Pogo Automatic Test Cartridge] 1 each MC ACHS #120 ea oxyCODONE [Roxicodone] 5 mg PO Q4H PRN #15 tablet PRN Reason: Pain Diet: Diabetic Activity Restrictions: Activity as Tolerated Shower Restrictions: No Driving Restrictions: No Instruction Topics: Hyperglycemia, Hypoglycemia, Diabetes Type 2 Oral Meds, Diabetes Eating Out Health Concerns: You were hospitalized to treat gallstone pancreatitis, and we found you to have Diabetes Mellitus now, with A1c of 14.7. Possibly the Diabetes will "diminish", as the pancreas heals. You underwent successful surgical removal of the gallbladder with gallstones, and you got instructions about healing from the surgeon. You received advice from our Veterinary Virologist about adjusting your vegan diet to accommodate the Diabetes. You are being discharged home with a new prescription for Metformin to take twice a day (at breakfast and at dinnertime), and an order for a new Glucometer and test supplies. Please monitor your blood sugar by fingerstick testing before each meal and before bedtime, or at least every a.m. before breakfast. Keep a log of these values and show them your new Primary Care provider. You had low Phosphorus and Magnesium blood levels, so you should now start taking a daily multivitamin that contains these elements (Mg, Zn, Phos). Plan of Treatment: As above. Care Goals: Improvement in symptoms and stabilization are the goals. Assessment: The patient understands and is agreeable with the plan. Additional Instructions or Follow Up instructions: If you have new or worsening symptoms, you may call the surgeon, Dr Blackmon, or your new Primary Care Provider, for advise, or come to an ER. No Smoking: If you smoke, Please STOP! Call for help.
--- NOTE | 2023-05-24 14:43 | DISCHARGE SUMMARY ---
Discharge Summary Admit Date: 05/20/23 Discharge Date: 05/24/23 Discharging Provider: Dr Ban Lala Primary Care Provider: DARLINE Christensen Code Status: Attempt Resuscitation Condition at Discharge: Fair Discharge Disposition: 01 Home, Self Care - HPI History of Present Illness: 72-year-old male presents to the emergency department with epigastric abdominal pain, started yesterday and is continued to worsen today. Has had nausea and vomiting today. No fevers. No chills. He states he has had Pancreatitis once in the past, about 10 years ago, no cause found. He does not smoke or drink. He does not take any medications at home. Patient blood sugar found yto be very elevated and he is on no medications for DM, also his LFTs are abnormal although no bile duct dilation or stone seen on imaging, but stone may have passed. CT scan did show concerns for a small abscess, patient seen by surgery and they recommend admission. Kenney's at bedside, describes patient has gone vegan, has lost weight. His weight over 200 and in last 6 mos has declined. He has been a vegan for 2 1/2 years now. He feels better after the pain meds given in ER. - HOSPITAL COURSE Hospital Course: (1) Acute pancreatitis : K85.90 - Acute pancreatitis without necrosis or infection, unspecified This was gallstone-induced pancreatitis. He was put on iv fluids and bowel rest. Patient underwent successful laparascopic cholecystectomy. There was fluid around the pancreas but no abscess. He tolerated advancing of diet and was able to be discharged the day after surgery. (2) Gallstones He underwent cholecystectomy. Pain was well controlled. (3) S/P Lap nany As per surgery note, he will need F/U (4) Transaminitis Probably caused by gallstones as well. (5) New onset Diabetes Mellitus, Type 2 Hemoglobin A1c was 14. This was new onset DM for this pt. He got sliding scale insulin coverage while here. He was started on a Diabetic diet after cholecystectomy, got nutritional teaching about how to add Diabetic restrictions to his vegan diet, and was discharged on Metformin po BID. - ALLERGIES Allergies/Adverse Reactions: Allergies Allergy/AdvReac Type Severity Reaction Status Date / Time No Known Drug Allergies Allergy Verified 05/20/23 17:54 - MEDICATIONS Home Medications: Ambulatory Orders Medication Instructions Recorded Confirmed oxyCODONE [Roxicodone] 5 mg PO Q4H PRN #15 tablet 05/23/23 polyethylene glycoL 3350(BULK) 17 gm PO DAILY #238 gm 05/23/23 [Miralax] Acetaminophen [Tylenol] 650 mg PO Q6H PRN tab 05/24/23 Blood-Glucose Meter [Glucometer] 1 ea SUBQ ACHS #1 each 05/24/23 Lancets/Blood Glucose Strips [Pogo 1 each ACHS #120 ea 05/24/23 Automatic Test Cartridge] metFORMIN [Glucophage] 500 mg PO BID #60 tab 05/24/23 - PHYSICAL EXAM AT DISCHARGE General Appearance: positive: No acute distress, Alert Eyes Bilateral: positive: Normal inspection, EOMI ENT: positive: ENT inspection nml, No signs of dehydration Neck: positive: Nml inspection, No JVD Respiratory: positive: No respiratory distress, Breath sounds nml Cardiovascular: positive: Regular rate & rhythm, No murmur Abdomen: positive: Non-tender, Nml bowel sounds, No distention Skin: positive: Warm, Dry Extremities: positive: Non-tender, No pedal edema Neurologic/Psychiatric: positive: Oriented x3, CN's nml (2-12), Motor nml - LABS Result Diagrams: 05/24/23 04:52 05/24/23 04:52 - DIAGNOSTIC IMAGING Diagnostic Imaging Results: Final report reviewed - SEPSIS Current Stage of Sepsis: Ruled out - FOLLOW UP Follow Up: See PCP and Surg for F/U. - TIME SPENT Time Spent in Discharge (Minutes): 39
== END 2023-05-24 14:59 | disposition home or self-care (01) | DRG 419 ==
LOC: ED 17:36 → MS2 22:19 → OBSVTOIN 05-21 11:24
PROVIDERS: ADMIT Internal Medicine; ATTEND Internal Medicine
PROC: BF001ZZ Plain Radiography of Bile Ducts using Low Osmolar Contrast (ICD-10-PCS; 2023-05-23)
PROC: 0FT44ZZ Resection of Gallbladder, Percutaneous Endoscopic Approach (ICD-10-PCS; principal; 2023-05-23 14:45)
DX: K85.10 Biliary acute pancreatitis without necrosis or infection (principal); E11.65 Type 2 diabetes mellitus with hyperglycemia; E80.6 Other disorders of bilirubin metabolism; D73.3 Abscess of spleen; R74.01 Elevation of levels of liver transaminase levels; R79.89 Other specified abnormal findings of blood chemistry; Z79.84 Long term (current) use of oral hypoglycemic drugs; Z80.41 Family history of malignant neoplasm of ovary
CPT/HCPCS: 36415; 74177; 74183; 74300; 76705; 80053; 80061; 80074; 81003; 82247; 82248; 82607; 83036; 83690; 83735; 84100; 84478; 85025; 85027; 96361; 96365; 96366; 96375; 96376; 99285; A9270; A9575; C1758; J0131; J1170; J1815; J7120; Q9961; Q9966; Q9967; 81001; 83721; 87086

== ENCOUNTER 2023-08-18 07:24 | Outpatient (CLI) | payer OTHER, MEDICARE ==
[2023-08-18 07:42] LABS: BASOPHILS # (AUTO) 0.1 10^3/uL (0.0-0.1); BASOPHILS % (AUTO) 1.1 %; EOSINOPHILS # (AUTO) 0.1 10^3/uL (0.0-0.7); EOSINOPHILS % (AUTO) 1.8 %; HCT - HEMATOCRIT 44.3 % (42.0-52.0); HGB - HEMOGLOBIN 14.8 g/dL (14.0-18.0); LYMPHOCYTES # (AUTO) 1.7 10^3/uL (1.5-3.5); LYMPHOCYTES % (AUTO) 37.6 %; MEAN CORPUSCULAR HGB CONC 33.4 g/dL (32.0-36.0); MEAN CORPUSCULAR VOLUME 89.7 fL (80.0-94.0); MEAN PLATELET VOLUME 9.4 fL (7.4-11.4); MONOCYTES # (AUTO) 0.4 10^3/uL (0.0-1.0); MONOCYTES % (AUTO) 9.2 %; NEUTROPHILS # (AUTO) 2.2 10^3/uL (1.5-6.6); NEUTROPHILS % (AUTO) 50.1 %; PLT - PLATELET COUNT 190 10^3/uL (130-450); RED BLOOD COUNT 4.94 10^6/uL (4.70-6.10); WHITE BLOOD COUNT 4.5 x10^3/uL (4.8-10.8)
[2023-08-18 08:00] LABS: ALBUMIN 4.4 g/dL (3.2-5.5); ALBUMIN/GLOBULIN RATIO 1.5 (1.0-2.2); ALKALINE PHOSPHATASE 34 IU/L (42-121); ALT ALANINE AMINOTRANSFERASE 13 IU/L (10-60); AST ASPARTATE AMINOTRANSFERASE 16 IU/L (10-42); BILIRUBIN,TOTAL 0.5 mg/dL (0.2-1.0); BUN - BLOOD UREA NITROGEN 19 mg/dL (6-20); CALCIUM 9.8 mg/dL (8.5-10.3); CARBON DIOXIDE - CO2 30 mmol/L (21-32); CHLORIDE 106 mmol/L (101-111); CHOL/HDL RATIO 4.8 (<5.0); CHOLESTEROL 153 mg/dL; CREATININE 0.8 mg/dL (0.6-1.3); GFR - MDRD 96 (>89); GLUCOSE 118 mg/dL (74-104); HDL CHOLESTEROL 32 mg/dL; LDL CHOLESTEROL,CALCULATED 101 mg/dL; LDL/HDL RATIO 3.2 (<3.6); POTASSIUM 4.2 mmol/L (3.5-4.5); SODIUM 141 mmol/L (135-145); TOTAL PROTEIN 7.3 g/dL (6.4-8.9); TRIGLYCERIDES 101 mg/dL (48-352); VLDL CHOLESTEROL 20 mg/dL
[2023-08-18 08:15] LABS: THYROID STIMULATING HORMONE 3.22 uIU/mL (0.34-5.60)
[2023-08-18 10:03] LABS: ESTIMATED AVERAGE GLUCOSE 134 mg/dL (70-100); HEMOGLOBIN A1c% 6.3 % (4.27-6.07)
== END 2023-08-18 07:25 | disposition home or self-care (01) ==
LOC: LAB 07:24
PROVIDERS: ATTEND Physician Assistant Medical
DX: Z00.00 Encounter for general adult medical examination without abnormal findings (principal); E78.5 Hyperlipidemia, unspecified; R73.9 Hyperglycemia, unspecified; Z87.19 Personal history of other diseases of the digestive system; Z12.5 Encounter for screening for malignant neoplasm of prostate
CPT/HCPCS: 36415; 80053; 80061; 83036; 83721; 84153; 84443; 85025

== ENCOUNTER 2023-12-06 07:13 | Outpatient (CLI) | payer OTHER ==
[2023-12-06 07:49] LABS: ALBUMIN 4.1 g/dL (3.2-5.5); ALBUMIN/GLOBULIN RATIO 1.4 (1.0-2.2); BILIRUBIN,TOTAL 0.5 mg/dL (0.2-1.0); CALCIUM 9.4 mg/dL (8.5-10.3); CREATININE 0.7 mg/dL (0.6-1.3); POTASSIUM 4.4 mmol/L (3.5-4.5); TOTAL PROTEIN 7.1 g/dL (6.4-8.9)
[2023-12-06 08:11] LABS: CREATININE,URINE 103.1 mg/dL; MICROALBUM/CREATININE RATIO,UR 14.5 ug/mg (<30.0); MICROALBUMIN,URINE 1.5 mg/dL
[2023-12-06 10:04] LABS: ESTIMATED AVERAGE GLUCOSE 103 mg/dL (70-100); HEMOGLOBIN A1c% 5.2 % (4.27-6.07)
== END 2023-12-06 07:14 | disposition home or self-care (01) ==
LOC: LAB 07:13
PROVIDERS: ATTEND Physician Assistant Medical
DX: E11.9 Type 2 diabetes mellitus without complications (principal); D72.819 Decreased white blood cell count, unspecified
CPT/HCPCS: 36415; 80053; 82043; 82570; 83036